=== PATIENT | female | born 1930 | race African-American/Black ===

== ENCOUNTER 2017-06-02 23:23 | Inpatient (IN) | payer MEDICARE, BC ==
[2017-06-02 23:58] LABS: #Eosinphils 0.2 thou/uL (0.0-0.7); #Monocytes 0.4 thou/uL (0.11-0.59); %Basophils 0.4 % (0.0-1.0); %Eosinophils 2.5 % (0.0-10.0); %Lymphocytes 31.1 % (21.0-51.0); %Monocytes 5.8 % (0.0-10.0); Hematocrit 46.6 % (36.0-47.0); Mean Platelet Volume 5.8 fL (7.4-10.4); Red Blood Cell (RBC) Count 5.05 mill/uL (4.20-5.40); White Blood Cell (WBC) Count 6.6 thou/uL (4.8-10.8)
[2017-06-03 00:21] LABS: ALT (SGPT) Less than 7 U/L (8-55); AST (SGOT) 14 U/L (5-34); Alkaline Phosphatase 117 U/L (40-150); Anion Gap 15 mmol/L (10-20); BUN (Urea Nitrogen) 16 mg/dL (9.8-20.1); Bilirubin, Total 1.6 mg/dL (0.2-1.2); Calc. Creatinine Clearance 0 mL/min (70-130); Calcium 9.8 mg/dL (7.8-10.44); Carbon Dioxide 25 mmol/L (23-31); Chloride 105 mmol/L (98-107); Estimated GFR-MDRD 63; Globulin 4.4 g/dL (2.4-3.5); Protein, Total 8.2 g/dL (6.0-8.3)
[2017-06-03 00:46] LABS: Lactic Acid - Sepsis 1.9 mmol/L (0.5-2.2)
[2017-06-03 02:06] LABS: Bilirubin Small (Negative); Blood, Urine Negative (Negative); Glucose, Urine (Dipstick) Negative (Negative); Ketone, Urine Trace mg/dL (Negative); Nitrite Positive (Negative); Protein, Urine (Dipstick) 30 mg/dL (Neg-Trace)
[2017-06-03 02:09] LABS: Bacteria/HPF 4+ HPF (None Seen); RBC/HPF 0-3 HPF (0-3); Squamous Epithelial 0-3 HPF (0-3)
[2017-06-03 02:22] LABS: Hyaline Casts/LPF NONE SEEN LPF (0-3 Hyaline); Yeast-All Forms None Seen HPF (None Seen)
[2017-06-03] MEDS ORDERED: Labetalol HCl 100 MG/20 ML VIAL SLOW IVP PRN (02:55)
[2017-06-03] MEDS ORDERED: Milk Of Magnesia 30 ML UDCUP PO PRN (02:55)
[2017-06-03] MEDS ORDERED: Dextrose 5% in Water 1,000 ML IV PRN (02:55)
[2017-06-03] MEDS ORDERED: Loratadine 10 MG TAB PO PRN (02:55)
[2017-06-03] MEDS ORDERED: Eucerin (Mineral Oil/Petrolatum,White) 30 gm Jar TOP PRN (02:55)
[2017-06-03] MEDS ORDERED: Sodium Chloride 0.65% Nasal 44 ML BOT EA NARE PRN (02:55)
[2017-06-03] MEDS ORDERED: Acetaminophen 325 MG TAB PO PRN (02:55)
[2017-06-03] MEDS ORDERED: Ondansetron HCl/PF 4 MG/2 ML Vial IVP PRN (02:55)
[2017-06-03] MEDS ORDERED: Dextrose 50% Abboject 50 ML SYRINGE SLOW IVP PRN (02:55)
[2017-06-03] MEDS ORDERED: Mag-Al 1200 mg/1200 mg/30 ML UDCUP PO PRN (02:55)
[2017-06-03] MEDS ORDERED: Artificial Tears 18 DROP/0.9 ML EA EYE PRN (02:55)
[2017-06-03] MEDS ORDERED: HumaLOG 300 UNITS/3 ML VIAL SC PRN ×2 (02:55)
[2017-06-03] MEDS ORDERED: Ondansetron ODT 4 MG TAB PO PRN (02:55)
[2017-06-03] MEDS ORDERED: Acetaminophen 650 MG Suppository PR PRN (02:55)
[2017-06-03] MEDS ORDERED: Loperamide HCl 2 MG CAP PO PRN (02:55)
[2017-06-03] MEDS ORDERED: Senokot 8.6 MG TAB PO PRN (02:55)
[2017-06-03] MEDS ORDERED: Diabetic Tussin 200 MG/10 ML UDCUP PO PRN (02:55)
[2017-06-03] MEDS ORDERED: Bisacodyl 10 MG SUPP PR PRN (02:55)
[2017-06-03] MEDS ORDERED: Sodium Chloride 0.9% 1,000 ML IV SCH (03:18)
[2017-06-03 05:07] LABS: Hemoglobin A1c 5.4 % (4.0-6.0)
[2017-06-03] MEDS: Levothyroxine Sodium 125 MCG TAB PO SCH (06:02)
--- NOTE | 2017-06-03 07:21 | HP ---
PRIMARY CARE PHYSICIAN: Dr. James Azevedo. REASON FOR ADMISSION: Acute cerebrovascular accident. HISTORY OF PRESENT ILLNESS: An 86-year-old female who lives at home with the caregiver. Patient does not have any son or daughter and her niece who is medical power of supervisor dry paste, who lives in [place]. This patient has a DO NOT RESUSCITATE order at home. This patient was normally talkative, but she has appeared more slow to respond and she was away from her baseline status as per caregiver and she was not acting normal. The patient appeared confused. Initially, the caregiver thought that she might had a urinary tract infection because she had that type of problem in the past. She was able to move her right upper and lower extremity and she was able to talk slowly and she was able to follow commands and that is why caregiver did not think about stroke and as this patient does not improving to baseline level and that is why caregiver was concerned about it and decided to bring her to the emergency room. In the emergency room, she had a CT of the brain, which showed right-sided CVA, this patient's caregiver reports that she had injury in 1973 and since then her left side is weak and that is why she was not able to recognize weakness. She did not have any fever or chills. She did not have any nausea, vomiting, or headache. She did not have any chest pain, palpitation, or shortness of breath. REVIEW OF SYSTEMS: The following complete review of systems was negative, unless otherwise mentioned in the HPI or below: Constitutional: Weight loss or gain, ability to conduct usual activities. Skin: Rash, itching. Eyes: Double vision, pain. ENT/Mouth: Nose bleeding, neck stiffness, pain, tenderness. Cardiovascular: Palpitations, dyspnea on exertion, orthopnea. Respiratory: Shortness of breath, wheezing, cough, hemoptysis, fever or night sweats. Gastrointestinal: Poor appetite, abdominal pain, heartburn, nausea, vomiting, constipation, or diarrhea. Genitourinary: Urgency, frequency, dysuria, nocturia. Musculoskeletal: Pain, swelling. Neurologic/Psychiatric: Anxiety, depression. Allergy/Immunologic: Skin rash, bleeding tendency. Please see my HPI for pertinent positive and negative. All other review of systems are reviewed and negative except as mentioned in the HPI. Review of system is limited and may have not been completely reliable because of altered mental status. PAST MEDICAL HISTORY: Patient has a history of injury in 1973 and since then she has left-sided weakness, chronic low back pain and muscle spasm, hypertension, hypothyroidism, diabetes type 2, dyslipidemia. PAST SURGICAL HISTORY: Reviewed and negative. PAST PSYCHIATRIC HISTORY: Anxiety, depression, and dementia. SOCIAL HISTORY: Patient lives at home with a caregiver. No history of tobacco , alcohol, or illicit drug abuse. Her only family member is the niece who lives in [place]. FAMILY HISTORY: No strong family history of premature coronary artery disease, stroke, or cancer. EMERGENCY ROOM COURSE: Patient has given aspirin 300 mg per rectally. ALLERGIES: No known drug allergies. CURRENT HOME MEDICATIONS: Aspirin 81 mg p.o. daily, amlodipine 10 mg p.o. daily , lisinopril 40 mg p.o. daily, Amaryl 4 mg p.o. daily, Lipitor 10 mg p.o. daily , Lasix 20 mg p.o. daily, Synthroid 125 mcg p.o. daily, hydrochlorothiazide 25 mg p.o. daily, Januvia 100 mg p.o. daily, metformin 1000 mg twice daily, potassium chloride 10 mEq p.o. twice daily. PHYSICAL EXAMINATION: VITAL SIGNS: On arrival, blood pressure 195/108, pulse 83, respiratory rate 20 , temperature 98.9, saturation 97% on room air, weight 88.4 kilograms. GENERAL: Patient is currently alert, arousable, no obvious acute distress. As per the patient's caregiver, her speech is baseline. HEENT: Head, normocephalic, atraumatic. Eyes, pupils round, reactive to light. Extraocular muscles intact. ENT, moist mucous membranes. No oral lesions. No pharyngeal erythema and no exudate. NECK: Supple. Range of motion is normal. No meningeal signs of irritation. LUNGS: Clear to auscultation without any rhonchi or rales. CARDIAC: S1 and S2 regular. No murmur, no gallop, no rub. ABDOMEN: Soft, bowel sounds present, nontender, nondistended. No organomegaly , no mass, no suprapubic tenderness. BACK EXAMINATION: Unremarkable, no CVA tenderness. EXTREMITIES: Upper extremities: Patient does have good strength in the right upper extremity. Patient does have decreased strength in the left upper extremity. Lower extremities: Similarly, patient does have weakness on the left lower extremity and good strength in the right lower extremity. NEUROLOGIC: The patient is currently alert and awake, follows commands. Speech normal. Patient does have left-sided weakness, which is chronic per caregiver, right-sided motor normal. No focal sensory deficit noted. Cerebellar sign unable to test at this point. SKIN: No skin rash. HEMATOLOGICAL SYSTEM: No lymphadenopathy. PSYCHIATRIC: Normal affect. SIGNIFICANT LABORATORY DATA AND DIAGNOSTICS: 1. 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 2. CT of the brain based on my review, right-sided acute cerebrovascular accident. 3. Chest x-ray, based on my review, no acute cardiopulmonary process. 4. CBC: WBC 6.6, hemoglobin 14.9, platelets 311. BMP shows sodium 141, potassium 4.0, chloride 105, carbon dioxide 25, BUN 16, creatinine 1.0, glucose 95, calcium 9.8. 5. LFT: AST 14, ALT less than 7, alkaline phosphatase 117, albumin 3.8. ASSESSMENT AND PLAN/IMPRESSION: 1. Acute cerebrovascular accident. This patient does have right-sided cerebrovascular accident with left-sided weakness. Her left-sided weakness is predominantly chronic as well. At this point, patient will require admission to the stroke floor. Neurology will be consulted. We will continue with aspirin 300 mg per rectally. When patient is able to take p.o. and cleared by speech therapy for oral intake, then we will resume aspirin 325 mg p.o. daily. We will also continue with blood pressure medicine with amlodipine, lisinopril as per home dosage and we will use p.r.n. basis hydralazine to keep blood pressure around 140 to 150. 2. Diabetes type 2. We will continue with insulin as per sliding scale protocol. We will check hemoglobin A1c. Once patient starts p.o. intake, at that time, we will resume her glimepiride, Januvia and metformin therapy. At this point, we will hold on that medication because of patient's blood sugar is running lower side. 3. Hypertension. We will continue with lisinopril 40 mg p.o. daily, amlodipine 10 mg p.o. daily, hydrochlorothiazide 25 mg p.o. daily, and p.r.n. basis hydralazine. 4. Dyslipidemia. We will check lipid profile tomorrow and continue with Lipitor 10 mg p.o. daily. 5. Chronic left-sided weakness. Patient will need PT, OT, and we will evaluate for SNU placement on discharge. 6. Deep venous thrombosis prophylaxis. Lovenox 40 mg subcu daily. 7. Gastrointestinal prophylaxis. Protonix 40 mg p.o. daily. CODE STATUS: Discussed with the patient and the patient's caregiver. Patient does have DNR status at her home and she does not want to try cardiopulmonary resuscitation in case of cardiopulmonary arrest and DNR order requested. During this admission and we will consult entire stroke team, PT, OT, and speech therapy evaluation, and as a stroke workup, we will do carotid ultrasound , echocardiography, homocysteine, lipid profile check, and RPR check. Disposition and plan, based on clinical course, we are expecting patient's stay in the hospital more than 2 midnights. Plan of care discussed with the patient' s family member at bedside. EMA
[2017-06-03] MEDS ORDERED: Aspirin 325 MG TAB PO SCH (09:00)
--- NOTE | 2017-06-03 09:31 | RAD ---
CHEST 1 VIEW: HISTORY: Altered mental status. COMPARISON: 05/02/07. FINDINGS: Cardiac silhouette is magnified by projection. Pulmonary vasculature is unremarkable. Mediastinum is midline. There is no lobar consolidation or evidence of pneumothorax. IMPRESSION: No active cardiopulmonary abnormalities are demonstrated. POS: [facility]
--- NOTE | 2017-06-03 09:53 | PDOC.EVN ---
Event Note - Event Note Event Note: Pt seen and examined.Chart reviewed in detail. tted earlier with dysarthria and weakness and found to have R MCA stroke. librarian special collections at bedside.Pt asleep. Discussed care. She reports that pt has come around and symptoms have much improved. will monitor. VSS.CTA b/l RRR. PLAN- PT/OT/LINSEED OIL REFINER/Neurology recs requested. cont CO ASA.Pt takes 81 mg ASA at home. Statin when cleared by LINSEED OIL REFINER. Stroke team to follow.Hemodynamically stable. Follow ECHO results. am labs. Nicole is the surrogate decision maker and lives in [place]
[2017-06-03] MEDS: cefTRIAXone\\ROCEPHIN 1 GM in Sodium Chloride 0.9% 100 ML IVPB SCH (10:02)
[2017-06-03] MEDS ORDERED: cefTRIAXone\\ROCEPHIN 1 GM VIAL ONE (11:37)
--- NOTE | 2017-06-03 12:48 | MRI ---
MRI BRAIN WITHOUT CONTRAST: HISTORY: An 86-year-old with a history of altered mental status. Possible stroke. FINDINGS: Multiplanar, multisequence noncontrast-enhanced MRI images of brain obtained. Noncontrast-enhanced MRI images of the brain demonstrate a large left middle cerebral artery vascula r distribution area of stroke. There are areas of diffusion restriction in the left basal ganglion including caudate head and body, putamen, and globus pallidus, right external capsule, internal caps ule, and right insular cortex, right parietal portions, and right posterior temporal lobe and portio ns of the posterior right temporal lobe. Extensive motion artifact degrades the quality of the T2, FLAIR, and gradient echo, and T1 weighted sequences. Findings were discussed with Dr. Jessica Kramer at 12:34 p.m. on 06/03/17. CODE CR POS: [facility]
--- NOTE | 2017-06-03 13:17 | CT ---
PRELIMINARY REPORT/[facility]/EMERGENCY AFTER HOURS PROCEDURE: EXAM: CT Head Without Intravenous Contrast CLINICAL HISTORY: 86 years old, female; Signs and symptoms; Altered mental status/memory loss; Confusion or disorienta tion; Patient HX: F86 presents to ed due to mental status changes. Pt's caregiver stated that patien t started acting differently today around noon. Pt's caregiver reports that pt was acting perfectly normal this morning, and around lunch she started acting confused, quiet and disorentied, which is n ot her baseline. Caregiver states that pt had an accident many years ago that altered strength and function in the left side of her body. TECHNIQUE: Axial computed tomography images of the head/brain without intravenous contrast. COMPARISON: No relevant prior studies available. FINDINGS: Brain: There is effacement of the right insular ribbon, the lateral margin of the right basal gangli a, and areas of the right temporal and parietal cortex. There is mild hyperdensity suggested in the distal branches of the right MCA. The findings are suspicious for an acute right MCA territory infarct. The ASPECTS score is as 5/10, greater than one third of the MCA territory. This is a CT contraindicatio n to thrombolytic therapy. There is a moderate burden of hypodense lesions in the bilateral frontop arietal white matter which could be acute or chronic small vessel ischemic disease change. There is no intracranial hemorrhage, mass effect, midline shift or herniation. There is moderate generalized brain parenchymal volume loss. There is a chronic appearing lacunar infarct in the left basal gangli a. There is a chronic small cortical infarct in the left parieto-occipital cortex. Ventricles: Unremarkable. No ventriculomegaly. Bones/joints: Unremarkable. No acute fracture. Soft tissues: Unremarkable. Vasculature: There are mild intracranial atherosclerotic vascular calcifications. Sinuses: Unremarkable as visualized. No acute sinusitis. Mastoid air cells: Unremarkable as visualized. No mastoid effusion. IMPRESSION: 1. There is effacement of the right insular ribbon, the lateral margin of the right basal ganglia, a nd areas of the right temporal and parietal cortex. There is mild hyperdensity suggested in the dist al branches of the right MCA. The findings are suspicious for an acute right MCA territory infarct. The ASPECTS score is as 5/10, approximately 50% of the MCA territory. This is a CT contraindication to thrombolytic therapy. 2. There is a moderate burden of hypodense lesions in the bilateral frontoparietal white matter whic h could be acute or chronic small vessel ischemic disease change. 3. There is no intracranial hemorrhage, mass effect, midline shift or herniation. This interpretation was based upon the receipt of 65 image(s). THIS REPORT CONTAINS FINDINGS THAT MAY BE CRITICAL TO PATIENT CARE. The findings were verbally commu nicated via telephone conference with KIRK Gutierrez at 12:46 AM CDT on 06/03/2017. The findings were acknowledged and understood. Thank you for allowing us to participate in the care of your patient. Dictated and Authenticated by: Alexander Mabry DO 06/03/2017 12:47 AM [place] Time ([place] \T\ Jim) FINAL REPORT CT HEAD NONCONTRAST: DATE: 06/03/17. TIME: Performed on an emergency basis at 0022 hours: HISTORY: Altered mental status. COMPARISON: 05/29/07. FINDINGS: Findings agree with the preliminary report by Dr. Mabry from [facility]. Subtle changes of the right middle cerebral hemisphere and hyperdensity associated with the distal branches of the rig ht middle cerebral artery are suggestive of acute/developing infarct. POS: [facility]
--- NOTE | 2017-06-03 13:33 | CON ---
DATE OF CONSULTATION: 06/03/2017 NEUROLOGY CONSULTATION CONSULTING PHYSICIAN: Hospitalist Service. IMPRESSION: 1. Urinary tract infection with increased weakness. 2. History of chronic left hemiparesis. PLAN: 1. Continue antibiotics. 2. Physical therapy evaluation. 3. MRI of the brain. HISTORY OF PRESENT ILLNESS: Ms. Love is an 86-year-old black female who lives at home with assist eddie. Her family reports that normally she can walk very short distances with some standby assistan ce. She usually spends most of her time sitting in her recliner or wheelchair. Ordinarily, she is able to get up and transfer with some minimal assistance. Her daughter noted that she seemed a bit more confused than normal and had more difficulty transferring. This has happened in the past when she had urinary tract infections. She came to the emergency room for evaluation. She had a CT scan of the brain done, which the hospitalist thought was consistent with a right hemispheric stroke. H er daughter reports that there is no change in the severity of weakness on the left side compared to her baseline. She was noted to have evidence of bacteria in the urine and was started on antibioti cs last night. She otherwise has not acted it in any way different than her baseline. PAST MEDICAL HISTORY: Prior brain injury with left-sided weakness. ALLERGIES: As per chart. MEDICATIONS: Were reviewed including aspirin and atorvastatin. SOCIAL HISTORY: No tobacco or alcohol use. FAMILY HISTORY: Noncontributory. REVIEW OF SYSTEMS: The patient has no other particular complaints. PHYSICAL EXAMINATION: GENERAL: Generally, she is a well-nourished elderly lady sitting up in bed in no distress. VITAL SIGNS: Blood pressure 141/70, pulse 69, respirations 18, and temperature 98.2. HEENT: Pupils are equal. Conjunctivae clear. Oropharynx clear. NECK: No lymphadenopathy noted. EXTREMITIES: No cyanosis or edema. NEUROLOGIC: She was alert, but minimally communicative. No obvious facial asymmetry, but she does not have her teeth in. Motor exam showed good strength on the right side with antigravity strength. There is left-sided weakness present in both the arm and leg. Sensation was grossly intact. No a bnormal movements were seen. LABORATORY DATA: Laboratory studies were reviewed. CT scan of the brain without contrast showed age-related atrophy and small vessel ischemic changes i n the periventricular regions bilaterally. No acute abnormalities were noted. SUMMARY: This is an 86-year-old woman who had minor change in general strength according to the jazmyne ghter with some confusion and evidence of urinary tract infection. I do not see any current evidenc e to suggest that she has suffered a new stroke. I agree with her current medication plan. MRI of the brain should determine whether there have been any acute abnormalities otherwise.
[2017-06-03] MEDS: Enoxaparin Sodium 40 MG/0.4 ML SYRINGE SC SCH (14:18)
[2017-06-03] MEDS: Aspirin 300 MG Suppository PR SCH (14:19)
[2017-06-03] MEDS: Famotidine/PF 20 mg/2ml Vial SLOW IVP SCH ×2 (14:30→20:43)
[2017-06-03] MEDS: Lisinopril 20 MG TAB PO SCH (14:31)
[2017-06-03] MEDS: Hydrochlorothiazide 25 MG TAB PO SCH (14:31)
[2017-06-03] MEDS: Dextrose 5 %-0.45 % NaCl 1,000 ML IV SCH (15:34)
[2017-06-03] MEDS: Nystatin 500,000 UNITS/5 ML UDCUP SSW SCH ×2 (18:40→20:43)
[2017-06-03] MEDS: Atorvastatin Calcium 10 MG TAB PO SCH (20:38)
[2017-06-04] MEDS: Dextrose 5 %-0.45 % NaCl 1,000 ML IV SCH ×2 (04:27→17:38)
[2017-06-04] MEDS: Levothyroxine Sodium 125 MCG TAB PO SCH (05:27)
[2017-06-04] MEDS: cefTRIAXone\\ROCEPHIN 1 GM in Sodium Chloride 0.9% 100 ML IVPB SCH (09:06)
[2017-06-04] MEDS: Aspirin 300 MG Suppository PR SCH (09:07)
[2017-06-04] MEDS: Enoxaparin Sodium 40 MG/0.4 ML SYRINGE SC SCH (09:07)
[2017-06-04] MEDS: Nystatin 500,000 UNITS/5 ML UDCUP SSW SCH ×4 (09:07→21:45)
--- NOTE | 2017-06-04 09:38 | PDOC.PN ---
- Subjective Encounter Start Date: 06/04/17 Encounter Start Time: 09:37 -: old records requested/rev Pt seen and examined, chart reviewed in its entirety. This is mty first visit with this patient. Family at bedside, MSmuch improved, basically at caseline. Pt is asking for banana pudding, over and over. follows commands Case discussed with DIRECTOR OF SPECIAL SERVICES: swallowing now appears to be at baseline, deitary recommendations made and approved. DIRECTOR OF SPECIAL SERVICES to enter. Still with aspiration risk, btu seems to be at baseline Neuro note reviewed: no hard clinical evidence of acute CVA MRI: Large left MCA distribution CVA No F/c, no N/V/d/c, speech and movement apparently improved - Objective Resuscitation Status: Resuscitation Status DNR:Do Not Resuscitate MAR Reviewed: Yes Vital Signs & Weight: Vital Signs (12 hours) Temp Pulse Resp BP Pulse Ox 06/04/17 07:35 98.4 F 64 16 146/69 H 16 L 06/04/17 04:15 98.3 F 59 L 14 159/78 H 98 06/03/17 23:46 96.7 F L 53 L 18 159/91 H 98 Weight Weight 154 lb 12.8 oz I&O: 06/03/17 06/04/17 06/05/17 06:59 06:59 06:59 Intake Total 40 975 Balance 40 975 Result Diagrams: 06/02/17 23:49 06/02/17 23:49 Additional Labs: Accuchecks 06/04/17 06/03/17 06/03/17 06:05 21:07 17:45 POC Glucose 87 84 76 06/03/17 11:02 POC Glucose 72 Radiology Reviewed by me: Yes EKG Reviewed by me: Yes Phys Exam - Physical Examination Constitutional: NAD HEENT: PERRLA, moist MMs, sclera anicteric, oral pharynx no lesions Neck: no nodes, no JVD, supple, full ROM Respiratory: no wheezing, no rales, no rhonchi, clear to auscultation bilateral Cardiovascular: RRR, no significant murmur, no rub Gastrointestinal: soft, non-tender, no distention, positive bowel sounds Musculoskeletal: no edema, pulses present Neurological: non-focal Lymphatic: no nodes Psychiatric: normal affect, A&O x 3 Skin: no rash, normal turgor, cap refill <2 seconds Dx/Plan (1) Left acute arterial ischemic stroke, MCA (middle cerebral artery) Code(s): I63.512 - CEREB INFRC D/T UNSP OCCLS OR STENOS OF LEFT MID CEREB ART Status: Acute Comment: will follow up on neuro thoughts and recs. looks by MRI to be a newer CVA. continue ASA. MS at baseline, awaiting PT/OT to eval. Rehab vs home with [facility] PT on d/C (2) Oropharyngeal dysphagia Code(s): R13.12 - DYSPHAGIA, OROPHARYNGEAL PHASE Status: Chronic Comment: at baseline, diet modified per DIRECTOR OF SPECIAL SERVICES (3) DM2 (diabetes mellitus, type 2) Status: Chronic Qualifiers: Diabetes mellitus complication status: with circulatory complication Diabetes mellitus technician terminal and repeater insulin use: unspecified technician terminal and repeater insulin use status (4) HTN (hypertension) Code(s): I10 - ESSENTIAL (PRIMARY) HYPERTENSION Status: Chronic (5) HLD (hyperlipidemia) Code(s): E78.5 - HYPERLIPIDEMIA, UNSPECIFIED Status: Chronic (6) Hypothyroidism Code(s): E03.9 - HYPOTHYROIDISM, UNSPECIFIED Status: Chronic - Plan cont current plan of care, plan discussed w/ family, PT/OT, speech therapy, DVT proph w/SCDs * .
[2017-06-04] MEDS: Hydrochlorothiazide 25 MG TAB PO SCH (12:01)
[2017-06-04] MEDS: Lisinopril 20 MG TAB PO SCH (12:01)
[2017-06-04 13:36] VITALS: BMI 25.0
[2017-06-04] MEDS ORDERED: Famotidine/PF 20 mg/2ml Vial SLOW IVP SCH (21:00)
[2017-06-04] MEDS: Atorvastatin Calcium 10 MG TAB PO SCH (21:45)
[2017-06-05] MEDS: cefTRIAXone\\ROCEPHIN 1 GM in Sodium Chloride 0.9% 100 ML IVPB SCH (06:01)
[2017-06-05] MEDS: Levothyroxine Sodium 125 MCG TAB PO SCH (06:02)
[2017-06-05] MEDS: Dextrose 5 %-0.45 % NaCl 1,000 ML IV SCH (06:04)
[2017-06-05] MEDS: Hydrochlorothiazide 25 MG TAB PO SCH (10:13)
[2017-06-05] MEDS: Lisinopril 20 MG TAB PO SCH (10:13)
[2017-06-05] MEDS: Nystatin 500,000 UNITS/5 ML UDCUP SSW SCH ×2 (10:14→14:24)
[2017-06-05] MEDS: Aspirin 325 mg Enteric Coated Tablet PO SCH ×2 (10:14→10:38)
[2017-06-05] MEDS: Enoxaparin Sodium 40 MG/0.4 ML SYRINGE SC SCH (10:15)
[2017-06-05 12:26] VITALS: TEMP 97.6
--- NOTE | 2017-06-05 14:57 | DIS ---
DATE OF ADMISSION: 06/03/2017 DATE OF DISCHARGE: 06/04/2017 DISCHARGE DIAGNOSES: 1. Acute left middle cerebral artery distribution, thrombotic cerebrovascular accident. 2. Oropharyngeal dysphagia, chronic. 3. Hyperlipidemia. 4. Diabetes mellitus type 2. 5. Hypertension. 6. Hypothyroidism. 7. Physical debility. 8. Escherichia coli urinary tract infection. 9. Pressure ulcers, present on admission SACROCOCCYGEAL R SIDE PRESSURE ULCER. STAGE II SACROCOCCYGEAL CENTER REGION PRESSURE ULCER. STAGE II SACROCOCCYGEAL LEFT SIDE PRESSURE ULCER. STAGE II CONSULTATION: Dr. Kwong from Neurology. PROCEDURES: 1. Echocardiogram on 06/03/2017 that showed diastolic dysfunction, slightly decreased ejection fraction of 30%-35%, mild mitral regurgitation. 2. Brain MRI on 06/03/2017 with left middle cerebral artery distribution acute infarct. HISTORY AND PHYSICAL: Ms. Love is a pleasant 86-year-old -[place] female with history of dementia followed by Dr. James Aezvedo as an outpatient. She presented to the emergency department for being less responsive than normal and was subsequently admitted from the ER for possible stroke. HOSPITAL COURSE: The patient was seen and examined by Dr. Marcano and admitted. She was started on aspirin per rectum, MRI was ordered and Neurology was consulted. The patient was seen by Dr. Kwong the morning of 06/03/2017, and without any further objective findings was not convinced of acute arterial stroke. She subsequently had an MRI done that did show left middle cerebral artery distribution ischemic changes and upon representation confirmed this. Mental status beal, she improved through the course of 06/03/2017-06/04/2017. By 06/04, she was able to eat. She was seen by PT, OT and ST. Speech therapy recommended dysphagia diet, but also mentioned that she was in aspiration risk. I discussed with the family, and they wish to go ahead and feed her acknowledging the risks. She worked with PT and OT. After discussion with the family and going back and forth regarding home health care versus nursing home facility placement, today 06/05/2017, they decided on home with home physical therapy. The patient was cleared by Neurology and stable for discharge with home physical therapy on increased aspirin from 81 up to 325 mg daily. PHYSICAL EXAMINATION: The patient was seen and examined on the day of discharge. Discharge plan and disposition were discussed with the patient and her family face to face at the bedside. DISCHARGE MEDICATIONS: 1. Aspirin 325 mg a day. 2. Amlodipine 10 mg a day. 3. Ampicillin 250 mg p.o. q.i.d. for 5 days. 3. Atorvastatin 10 mg daily. 4. Lasix 20 mg daily. 5. Glimepiride 4 mg daily. 6. Hydrochlorothiazide 25 mg daily. 7. Levothyroxine 125 mcg daily. 8. Lisinopril 40 mg daily. 9. Klor-Con 20 mEq p.o. b.i.d. 10. Metformin 1000 mg p.o. b.i.d. 11. Januvia 100 mg p.o. daily. DISCHARGE DISPOSITION: The patient has been discharged to home with home health care under [facility] for physical therapy, occupational therapy, and speech therapy. DISCHARGE CONDITION: Stable. FOLLOWUP APPOINTMENTS: 1. With primary care physician in a week. 2. Neurology per their clinic recommendation. EMA
[2017-06-05 15:18] VITALS: BP 121/64
--- NOTE | 2017-06-05 15:19 | PQF ---
CLINICAL DOCUMENTATION IMPROVEMENT CLARIFICATION FORM: ICD-10 Updated PLEASE DO AN ADDENDUM TO THE PROGRESS NOTE WITH ANY DOCUMENTATION UPDATES OR ADDITIONS AND CARRY THROUGH TO DC SUMMARY. THANK YOU. DATE: 06/05/17 ATTN: Dr. Cricket Mireles Please exercise your independent, professional judgment in responding to the clarification form. Clinical indicators are provided on the bottom of this form for your review Please check appropriate box(s): I (concur) with the Nursing Assessment findings as stated below. [ ] Pressure Ulcer: (Stage I: Erythema; Stage II: Partial thickness; Stage III : Full thickness; Stage IV: Necrosis to muscle/bone) [ ] Location: Stage (I to IV): (Left Right Bilateral N /A ) [ ] Location: Stage (I to IV): (Left Right Bilateral N /A ) [ ] Location: Stage (I to IV): (Left Right Bilateral N/ A ) [ ] No pressure ulcer diagnosis [ ] Deep tissue injury [ ] Other diagnosis [ ] Unable to determine In addition, please specify: Present on Admission (POA): [ ] Yes [ ] No [ ] Unable to determine For continuity of documentation, please document condition throughout progress notes and discharge summary. Thank You. CLINICAL INDICATORS - SIGNS / SYMPTOMS / LABS Pre-ulcer skin changes limited to persistent focal edema (Stage 1) Abrasion, blister, partial thickness skin loss involving epidermis and/or dermis (Stage 2) Full thickness skin loss involving damage or necrosis of SQ tissue. (Stage 3) Necrosis of soft tissue through to underlying muscle, tendon, or bone. (Stage 4) Purple or maroon discolored skin or blood filled blister NURSING ASSESS.:06/03 @ 0230 SACROCOCCYGEAL R SIDE PRESSURE ULCER. STAGE II SACROCOCCYGEAL CENTER REGION PRESSURE ULCER. STAGE II SACROCOCCYGEAL LEFT SIDE PRESSURE ULCER. STAGE II RISKS: H&P: HX OF INJURY IN 1973, & SINCE THEN SHE HAS L SIDED WEAKNESS, CHRONIC LOW BACK PAIN & MUSCLE SPASM, HTN, DM 2. TREATMENT: SKIN INTERVENTIONS PER NSG PROTOCOL: POSITION CHANGES: Q2HR IN BED, Q1 HR IN CHAIR SKIN KEPT FROM EXCESSIVE MOISTURE (This form is maintained as a part of the permanent medical record) 2014 [employer]. All Rights Reserved Saray Block RN, BSN [email or web address] Office: [phone] will address in d/C summary MTDD
== END 2017-06-05 16:37 | disposition home health service (06) | DRG 65 ==
LOC: ERS 23:23 → 2SE 06-03 01:00
PROVIDERS: ADMIT Internal Medicine; ATTEND Internal Medicine
DX: I63.312 Cerebral infarction due to thrombosis of left middle cerebral artery (principal); G81.94 Hemiplegia, unspecified affecting left nondominant side; L89.152 Pressure ulcer of sacral region, stage 2; N39.0 Urinary tract infection, site not specified; R13.12 Dysphagia, oropharyngeal phase; E11.9 Type 2 diabetes mellitus without complications; I10 Essential (primary) hypertension; B96.20 Unspecified Escherichia coli [E. coli] as the cause of diseases classified elsewhere; E78.5 Hyperlipidemia, unspecified; Z66 Do not resuscitate; Z79.84 Long term (current) use of oral hypoglycemic drugs; Z79.82 Long term (current) use of aspirin; E03.9 Hypothyroidism, unspecified
CPT/HCPCS: 36415; 36416; 51701; 70450; 70551; 71010; 80053; 80061; 81003; 81015; 83036; 83090; 83605; 84443; 85025; 86780; 87040; 87077; 87086; 87186; 93005; 93306; A4216; G8978-GP-CM; G8979-GP-CK; G8987-GO-CL; G8988-GO-CJ; G8996-GN-CL; G8996-GN-CM; G8997-GN-CK; J0696; J1650; J7050; S0028

== ENCOUNTER 2017-07-25 10:29 | Inpatient (IN) | payer MEDICARE, BC ==
[2017-07-25 11:09] LABS: #Basophils 0.1 thou/uL (0.0-0.2); #Eosinphils 0.3 thou/uL (0.0-0.7); #Lymphocytes 3.1 thou/uL (1.20-3.40); #Monocytes 0.7 thou/uL (0.11-0.59); #Neutrophils 5.2 thou/uL (1.40-6.50); %Basophils 0.7 % (0.0-1.0); %Eosinophils 3.3 % (0.0-10.0); %Lymphocytes 33.3 % (21.0-51.0); %Monocytes 7.1 % (0.0-10.0); Hematocrit 44.6 % (36.0-47.0); Mean Platelet Volume 6.2 fL (7.4-10.4); Red Blood Cell (RBC) Count 4.75 mill/uL (4.20-5.40); White Blood Cell (WBC) Count 9.4 thou/uL (4.8-10.8)
--- NOTE | 2017-07-25 11:24 | RAD ---
CHEST ONE VIEW: Comparison: 06-12-17 History: Weakness. FINDINGS: Elongation of the aorta. Normal cardiac silhouette. The pulmonary vessels and hilum are normal. Costo phrenic angles are clear. No masses or consolidation. No pneumothorax or osseous abnormalities. IMPRESSION: No acute cardiopulmonary process. POS: CHON
[2017-07-25 11:26] LABS: Lactic Acid - Sepsis 1.8 mmol/L (0.5-2.2)
[2017-07-25 11:31] LABS: ALT (SGPT) 12 U/L (8-55); AST (SGOT) 24 U/L (5-34); Alkaline Phosphatase 137 U/L (40-150); Anion Gap 16 mmol/L (10-20); BUN (Urea Nitrogen) 55 mg/dL (9.8-20.1); Bilirubin, Total 1.2 mg/dL (0.2-1.2); CK (CPK) 245 U/L (29-168); Calc. Creatinine Clearance 0 mL/min (70-130); Calcium 10.6 mg/dL (7.8-10.44); Carbon Dioxide 30 mmol/L (23-31); Chloride 106 mmol/L (98-107); Estimated GFR-MDRD 30; Globulin 4.6 g/dL (2.4-3.5); Protein, Total 8.5 g/dL (6.0-8.3)
[2017-07-25 11:46] LABS: Troponin I 0.557 ng/mL (< 0.028)
[2017-07-25] MEDS ORDERED: Aspirin 325 MG TAB ONE (12:09)
[2017-07-25 12:52] LABS: Bilirubin Moderate (Negative); Blood, Urine Moderate (Negative); Glucose, Urine (Dipstick) Negative (Negative); Ketone, Urine Trace mg/dL (Negative); Nitrite Negative (Negative); Protein, Urine (Dipstick) 30 mg/dL (Neg-Trace)
[2017-07-25 12:54] LABS: Bacteria/HPF None Seen HPF (None Seen); Squamous Epithelial 21-50 HPF (0-3)
[2017-07-25 13:12] LABS: Yeast-All Forms None Seen HPF (None Seen)
[2017-07-25 13:14] LABS: Renal Epithelial None Seen HPF (0-3); Transitional Epithelial 0-3 HPF (0-3)
--- NOTE | 2017-07-25 15:03 | HP ---
DATE OF ADMISSION: 07/25/2017 PRIMARY CARE PHYSICIAN: Rosalie oYrkO. CHIEF COMPLAINT: Decreased appetite, not feeling well. HISTORY OF PRESENT ILLNESS: Ms. Love is an 86-year-old -[place] female with past medical h istory of CVA as well as hypertension, hypothyroidism, diabetes, and dyslipidemia who was brought in by her care provider for the above-mentioned complaints. History is mainly obtained by the care prov ider as the patient has advanced dementia and is not able to provide any history. Electronic medical records have been reviewed. The patient was last admitted to our facility in 05/2017 at which time she was diagnosed with acute cerebrovascular accident of left middle cerebral artery. She was discha rged home with physical therapy at that point of time. According to the care provider, she has been feeling well up until now. For the last 2 days, the car e provider noticed decreased appetite. She has been barely eating or drinking anything. Other than that, she has not noticed any changes in her mentation other than increased somnolence. She has not noticed any nausea, vomiting, or loose stools. She has not noticed any changes in her urination. No foul smell or different color to her urine. The patient has not been feeling short of breath accord ing to the care provider. She has not been complaining of any discomfort or any chest pain. Chelo yanez called the primary care physician's office and was told to come to the emergency room for conc erns of possible sepsis. Upon presentation to the emergency room, the patient was found to be tachycardic with heart rate in t he 120s and low blood pressure with 101/72 reading upon presentation. She had a temperature of 98.3 rectally as well upon presentation. Further evaluation revealed evidence of acute renal insufficienc y and elevated cardiac enzymes. Her troponin is elevated to 0.557 with normal CK-MB. Her creatinine kinase is also elevated at 245. Her lactic acid is within normal limits. Her urine has been done a fter straight cath and looks contaminated. Her chest x-ray is negative for any acute intrathoracic p rocesses. She is now being admitted for further evaluation of nat-CQ-qkmovegaw myocardial infarction . She has received aspirin in the emergency room. PAST MEDICAL HISTORY: 1. Recent acute cerebrovascular accident involving the left middle cerebral artery, 05/2017. 2. Hypothyroidism. 3. Chronic back pain, muscle spasm. 4. Severe advanced dementia. 5. Hypertension. 6. Diabetes. 7. Dyslipidemia. PAST SURGICAL HISTORY: Reviewed and none. PSYCHIATRIC HISTORY: Anxiety and dementia. SOCIAL HISTORY: She lives at home with the care provider. No history of drug, tobacco or alcohol ab use. Her niece is the care provider who lives in [place]. FAMILY HISTORY: No strong family history of premature coronary artery disease, stroke or cancer. ALLERGIES: No known medication allergies. CURRENT MEDICATIONS LIST: It is not available to me for review at this time. She was discharged on following medications in 05/2017, just about 5 weeks ago. She is supposed to be on aspirin 325 mg a day, amlodipine 10 mg a day, atorvastatin 10 mg a day, Lasix 20 mg daily, glimepiride 4 mg daily, hy drochlorothiazide 25 mg daily, levothyroxine 125 mcg daily, lisinopril 40 mg daily, Klor-Con 20 mg p. o. b.i.d., metformin 1000 mg p.o. b.i.d. and Januvia 100 mg daily. REVIEW OF SYSTEMS: It is very limited. The patient is awake, alert, oriented x3, but she is groanin g nonstop. At this time, denies any chest pain, shortness of breath, abdominal pain, nausea, vomitin g, diarrhea. She denies any headache, vision changes. She denies any dysuria, frequency, urgency. Once again, the review of systems is limited, because of the dementia. LABORATORY EXAMINATION: Her CBC done in the ER today is unremarkable. Serum chemistry shows sodium of 147, BUN 55, creatinine 1.93. Lactic acid is normal at 1.8. Calcium is elevated at 10.6, creatin ine kinase 245. CK-MB normal at 2.3. Troponin 0.557. X-RAY FINDINGS: Chest x-ray by my review has no evidence of any pulmonary effusions, edema or infilt rates. PHYSICAL EXAMINATION: VITAL SIGNS: Upon presentation include blood pressure 101/72, pulse of 125, saturating 100% on room air, respirations 16, temperature 98.3. GENERAL: No acute distress, awake, alert, oriented x3. She is groaning really loud, but she stopped groaning when redirected and engaged in conversation. HEENT: Mucous membrane is severely dry. No oropharyngeal exudate or erythema. Head is normocephali c, atraumatic. Pupils equal, reactive to light and accommodation. NECK: Supple without any lymphadenopathy, JVD or bruit. CHEST: Clear to auscultation without any wheezing, rales or rhonchi, though it is difficult to auscu ltate because of body position. CARDIOVASCULAR: Rhythm is regular without any murmur, rubs or gallops. She appears to be tachycardi c with frequent extra beats. ABDOMEN: Soft, nontender, nondistended with positive bowel sounds. EXTREMITIES: Free of any cyanosis, clubbing, or edema. NEUROLOGIC: Limited, but the patient is moving all four extremities. No facial droop noticed. No g ross motor deficits noticed. SKIN: Free of any rashes or bruises. Feels warm and dry to touch. PSYCHIATRIC: Normal affect, appears oriented to person, place, and time. IMPRESSION AND PLAN: 1. Non-ST elevation myocardial infarction. This is likely in the setting of extreme dehydration due to poor p.o. intake and demand ischemia. At this time, we will continue to trend serial troponins a nd restart her home medications of aspirin as well as statins. She had an echocardiogram done on 03/2017 which did not show any cardiomyopathy or valvular abnormality. We will request consultation with Cardiology for further recommendations. It does not seem like the patient has been risk stratif ied and near paused. Given the advanced dementia, she might not be the ideal candidate for same. In any case, we will continue with medical management and resuscitate this patient with IV fluids. 2. Hypotension, likely hypovolemic shock. At this time, continue with generous IV fluid and monitor her hemodynamics closely. Strict I's and O's will be monitored. At this time, we will hold her ant ihypertensive medications and volume resuscitate her. 3. Acute kidney insufficiency. This is once again secondary to poor p.o. intake. Her baseline crea tinine last month was 1.0. Her GFR since then has dropped more than half. We will hold all nephroto xic medications including the KAYLA inhibitors and metformin for now and continue IV fluid hydration. 4. Recent cerebrovascular accident. As stated above, we will continue with aspirin and statin. We will reconsult OT, PT and speech therapist for safe swallow. We will start her on diet with aspirati on risk as per the last discharge summary. 5. Diabetes mellitus type 2. At this time, we will start her on insulin sliding scale for better co ntrol as the patient's oral intake is marginal. We will hold all oral hypoglycemic medications to pr event hypoglycemia. 6. History of hypertension. At this time, due to low blood pressure, we are holding all her blood p ressure medications. They will be started once her blood pressure and renal function allows. 7. Dyslipidemia. Continue with statin. CODE STATUS: DO NOT RESUSCITATE. This was discussed with the care provider who reports that she has a written request. The care provider is requested to bring the paperwork to the hospital. DISPOSITION: The patient is being admitted to the hospital for non-ST elevation PR, likely demand is chemia secondary to extreme dehydration. Further management will depend upon her clinical course. E stimated length of stay is 2-3 midnights.
[2017-07-25 15:49] LABS: Critical Call Chem Troponin I RESULT DECREASING; Troponin I 0.516 ng/mL (< 0.028)
[2017-07-25] MEDS ORDERED: HumaLOG 300 UNITS/3 ML VIAL SC PRN ×2 (15:59)
[2017-07-25] MEDS ORDERED: Acetaminophen 325 MG TAB PO PRN (15:59)
[2017-07-25] MEDS ORDERED: Ondansetron HCl/PF 4 MG/2 ML Vial IVP PRN (15:59)
[2017-07-25] MEDS ORDERED: hydrALAZINE 20 MG/ML VIAL SLOW IVP PRN (15:59)
[2017-07-25] MEDS ORDERED: Diabetic Tussin 200 MG/10 ML UDCUP PO PRN (15:59)
[2017-07-25] MEDS ORDERED: Bisacodyl 5 MG TAB PO PRN ×2 (15:59)
[2017-07-25] MEDS ORDERED: Benzonatate 100 MG CAP PO PRN (15:59)
[2017-07-25] MEDS ORDERED: Calcium Carbonate 500 MG ChewTAB PO PRN (15:59)
[2017-07-25] MEDS ORDERED: Loratadine 10 MG TAB PO PRN (15:59)
[2017-07-25] MEDS ORDERED: Senokot 8.6 MG TAB PO PRN ×2 (15:59)
[2017-07-25] MEDS ORDERED: Milk Of Magnesia 30 ML UDCUP PO PRN (15:59)
[2017-07-25] MEDS ORDERED: Nitroglycerin 0.4 MG TAB (25 Tab Bottle) SL PRN (15:59)
[2017-07-25] MEDS ORDERED: Mag-Al 1200 mg/1200 mg/30 ML UDCUP PO PRN (15:59)
[2017-07-25] MEDS ORDERED: Dextrose 5% in Water 1,000 ML IV PRN (15:59)
[2017-07-25] MEDS ORDERED: cloNIDine 0.1 MG TAB PO PRN (15:59)
[2017-07-25] MEDS: Heparin 5,000 UNITS/ML VIAL SC SCH (20:11)
[2017-07-25] MEDS: Famotidine/PF 20 mg/2ml Vial SLOW IVP SCH (20:11)
[2017-07-25] MEDS: Sodium Chloride 0.9% 1,000 ML IV SCH (20:12)
[2017-07-25] MEDS ORDERED: Atorvastatin Calcium 10 MG TAB PO SCH (21:00)
--- NOTE | 2017-07-25 23:10 | CON ---
DATE OF CONSULTATION: 07/25/2017 PRIMARY CARE PHYSICIAN: James Azevedo D.O. PRIMARY SEED PELLETER: Deepa Brewer M.D. REFERRING PHYSICIAN: Dr. Kramer. REASON FOR CARDIOLOGY CONSULTATION: Non-ST segment elevation myocardial infarction. HISTORY OF PRESENT ILLNESS: Ms. Love is 86 years old -[place] Citizen female with a significant history of CVA, hypertension, hypothyroidism, type 2 diabetes , who was brought to [facility] for fatigue, dehydration and possible sepsis. History was taken from the patient's caregiver who stays with the patient for 24 hours 7 days. According to the patient's caregiver, she was doing well until Sunday on 07/21/2017. She was active, although she has a history of CVA. She was talking, eating well, set up to the chair; however, from Sunday, her appetite decreased. She only had a couple of bites each meal and could not able to finish her Glucerna, which she usually likes to drink at every meal. Her systolic blood pressure has been in the 80s, 90s at home, which is her normal blood pressure range, so the patient's caregiver was waiting for home health nurse to present to the patient's home on Sunday. She also did not urinate well on Sunday or Sunday. Usually, she void 4 to 5 times a day; however, she urinates only 2 times on Sunday and 3 times on Sunday with very small amount of urine. Home health nurse assessed the patient on Sunday07/24/2017. The caregiver received the phone call from the patient's primary care doctor on Sunday on 07/25/2017 and was told to take the patient to the [facility] for possible sepsis and for further evaluation and treatment. According to the caregiver, she complains of dizziness on Sunday. She denied shortness of breath, chest pain or tightness in her chest, nauseate, vomiting or diaphoresis or any other cardiac complaint. She was talking in this morning. She answered the question and responds to caregiver. However, she was up all day last night, so during the Cardiology consult assessment she was sleeping deeply. She is not able to answer any questions at this moment. When she was presented to the ER, she was found to have urinary tract infection and patient's troponin level was elevated to 0.557 and 0.516. The patient was hospitalized in 05/2017 for CVA with right-sided weakness. The patient's echocardiogram in 05/2017 shows ejection fraction of 50% to 55%, trace mitral valve regurgitation and mild tricuspid regurgitation. PAST MEDICAL HISTORY: 1. Cerebrovascular accident with right-sided weakness in 05/2017. 2. Hypertension. 3. Hypothyroidism. 4. Chronic back pain. 5. Mild advanced dementia according to caregiver. 6. Type 2 diabetes. 7. Dyslipidemia. 8. Bilateral cataract, she has not had any surgery at this moment. PAST SURGICAL HISTORY: None. PSYCHIATRIC HISTORY: She has a history of anxiety and dementia. FAMILY HISTORY: Significant history of diabetes and hypertension in her sisters. SOCIAL HISTORY: She lives at home with her caregiver. She does not have any history of tobacco, alcohol or illicit drug abuse. ALLERGIES: She has no known drug allergy. HOME MEDICATIONS: She takes aspirin 81 mg once a day, amlodipine 10 mg once a day, glimepiride 4 mg once a day, atorvastatin 10 mg once a day, furosemide 20 mg once a day, levothyroxine 125 mcg once a day, hydrochlorothiazide 25 mg once a day, Januvia 100 mg once a day, metformin 1000 mg twice a day, potassium supplement 10 mEq twice a day. REVIEW OF SYSTEMS: Noncontributory due to very drowsiness; however, according to caregiver, patient did not complain of chest pain, shortness breath, nausea, vomiting or diarrhea or constipation, headache, blurry vision, eating habit change. However, she has complained of pain in her vagina and ulcer at the sacrum area, which is managed by her home health. PHYSICAL EXAMINATION: VITAL SIGNS: Her blood pressure is 104/79, pulse 117, respiratory rate 22, temperature 98.9, O2 saturation 100% with room air. GENERAL: Well-developed, well-nourished without any acute distress. The patient is very drowsy due to possible lack of sleep last night. HEENT: Head: Normocephalic, atraumatic. Facial drooping on her right side. Eyes: Unable to assess at this moment. ENT: Oral and nasal mucosae are moist without lesion. NECK: No JVD. Neck is supple. Normal range of motion. LUNGS: Clear to auscultation bilaterally, but diminished at the bases, but no wheezing, rales or rhonchi noted. CARDIOVASCULAR: Regular rate and rhythm. Normal S1, S2. There are no S3, S4. No significant murmur, hives, thrill bruit or rub noted. EXTREMITIES: There are 2+ pulses in the dorsal pedis, posterior tibial, and popliteal. Carotid pulses are present without bruit or thrill. No edema in the bilateral lower extremities. ABDOMEN: Soft, nontender, mass to palpate, nondistended. Bowel sounds are present. MUSCULOSKELETAL: Unable to assess at this moment. SKIN: Warm and dry. No skin rash or lesion or bruise noted. NEUROLOGIC: The patient is very drowsy, unable to follow commands. PSYCHIATRIC: Unable to assess at this moment. EKG: A 12-lead EKG in the ER showed sinus tachycardia with frequent PVCs and PACs with T-wave inversion in the V1, V4, V5 and V6. The patient's chest x-ray shows no acute cardiopulmonary process. LABORATORY DATA: WBC is 9.4, hemoglobin 14.2, hematocrit 44.6, platelet of 360. Sodium 147, potassium 4.6, BUN 55, creatinine 1.93, AST 24, ALT 12, CK-MB 2.3, troponin 0.557 and 0.516. Urinalysis positive for infection. ASSESSMENT AND PLAN: 1. Indeterminate Troponin level. Elevated troponin level is possible due to dehydration and demand ischemia. The patient's troponin will be to check by the primary care doctor. The patient is going to receive normal saline 100 mL per an hour for dehydration. Patient's echocardiogram in 05/2017 showed a good ejection fraction, so the patient will tolerate fluids and normal saline IV fluids treatment. The patient's 12 lead EKG shows T-wave inversion in several leads; however, due to her advanced dementia, patient may not be a good candidate for further cardiac studies. 2. Tachycardia. The patient's heart rates have been in the 100-110s, possible due to sepsis or secondary to severe dehydration. Hopefully, the patient's heart rate is coming down with normal saline IV fluids treatment. We would like to continue to monitor on the telemetry and we like to adjust medication as appropriate 3. Hypotension, secondary to dehydration. Again, patient is going to have continuous normal saline IV fluid. Hopefully, the patient's blood pressure becomes stabilized with normal saline. 4. Acute kidney insufficiency secondary to dehydration. Again, once patient started receiving normal saline IV fluid treatment, patient's kidney function improves. We like to continue to monitor. The patient's KAYLA inhibitor and ____ _ is on hold by the primary care doctor due to the patient's kidney function. 5. Diabetes type 2. According to the caregiver, patient's blood sugar was extremely low like 30s and 40s at home after she had a cerebrovascular accident. D5 normal saline might be beneficial for this patient to avoid hypoglycemia. 6. History of cerebrovascular accident with right-sided weakness. She is on aspirin 325 mg one daily. We like to restart patient's statin medication. 7. Hyperlipidemia. We like to start some statin medication for this patient, atorvastatin 10 mg once a day. 8. History of hypertension. Her blood pressure tends to be low at this moment. We would like to continue to monitor her blood pressure and we like to adjust patient medication as appropriate. 9. Hypothyroidism. The patient's levothyroxine 125 mcg once a day will be started. Thank you very much for allowing the Cardiology service to participate in the care of this patient. We will follow along with the patient care team and make further recommendations as appropriate. EMA
[2017-07-26] MEDS: Sodium Chloride 0.9% 1,000 ML IV SCH (02:12)
[2017-07-26 04:56] LABS: #Basophils 0.1 thou/uL (0.0-0.2); #Eosinphils 0.3 thou/uL (0.0-0.7); #Lymphocytes 2.6 thou/uL (1.20-3.40); #Monocytes 0.6 thou/uL (0.11-0.59); #Neutrophils 4.3 thou/uL (1.40-6.50); %Eosinophils 3.2 % (0.0-10.0); %Lymphocytes 32.8 % (21.0-51.0); %Monocytes 7.7 % (0.0-10.0); Hematocrit 35.7 % (36.0-47.0); Red Blood Cell (RBC) Count 3.78 mill/uL (4.20-5.40); White Blood Cell (WBC) Count 7.8 thou/uL (4.8-10.8)
[2017-07-26 05:07] LABS: Anion Gap 9 mmol/L (10-20); BUN (Urea Nitrogen) 41 mg/dL (9.8-20.1); Calc. Creatinine Clearance 41 mL/min (70-130); Calcium 9.3 mg/dL (7.8-10.44); Carbon Dioxide 29 mmol/L (23-31); Chloride 114 mmol/L (98-107); Estimated GFR-MDRD 59
[2017-07-26] MEDS: Levothyroxine Sodium 125 MCG TAB PO SCH (05:20)
[2017-07-26 06:06] LABS: Bilirubin Negative (Negative); Blood, Urine Trace (Negative); Glucose, Urine (Dipstick) Negative (Negative); Ketone, Urine Negative (Negative); Nitrite Negative (Negative); Protein, Urine (Dipstick) Negative (Neg-Trace)
[2017-07-26 06:09] LABS: Bacteria/HPF None Seen HPF (None Seen); Hyaline Casts/LPF 4-6 HYALINE CAST LPF (0-3 Hyaline); Squamous Epithelial 0-3 HPF (0-3)
[2017-07-26] MEDS: Aspirin 325 mg Enteric Coated Tablet PO SCH (08:56)
[2017-07-26] MEDS: Atorvastatin Calcium 10 MG TAB PO SCH (08:59)
[2017-07-26] MEDS: Heparin 5,000 UNITS/ML VIAL SC SCH ×2 (08:59→21:15)
--- NOTE | 2017-07-26 09:36 | PDOC.PN ---
- Subjective Encounter Start Date: 07/26/17 Encounter Start Time: 07:50 -: old records requested/rev Patient seen and examined. No overnight events, pt is mumbling, rn patient care bedside - Objective Resuscitation Status: Resuscitation Status DNR:Do Not Resuscitate MAR Reviewed: Yes Vital Signs & Weight: Vital Signs (12 hours) Temp Pulse Resp BP Pulse Ox 07/26/17 09:09 97.8 F 88 17 112/71 96 07/26/17 07:57 98.6 F 85 16 96 07/26/17 04:00 98.6 F 85 16 115/58 L 98 Weight Weight 141 lb 4.8 oz I&O: 07/25/17 07/26/17 07/27/17 06:59 06:59 06:59 Intake Total 1562 240 Output Total 750 Balance 812 240 Result Diagrams: 07/26/17 04:17 07/26/17 04:17 Additional Labs: Accuchecks 07/26/17 07/25/17 07/25/17 05:53 19:59 17:05 POC Glucose 64 L 81 75 EKG Reviewed by me: Yes Phys Exam - Physical Examination Constitutional: NAD HEENT: PERRLA, moist MMs, sclera anicteric Neck: no JVD, supple Respiratory: no wheezing, no rales, no rhonchi Cardiovascular: RRR, no significant murmur, no rub Gastrointestinal: soft, non-tender, no distention, positive bowel sounds Musculoskeletal: no edema, pulses present Neurological: non-focal, normal sensation, moves all 4 limbs Lymphatic: no nodes Psychiatric: normal affect, A&O x 3 Skin: no rash, normal turgor Dx/Plan (1) Acute kidney failure Status: Acute (2) NSTEMI (non-ST elevated myocardial infarction) Code(s): I21.4 - NON-ST ELEVATION (NSTEMI) MYOCARDIAL INFARCTION Status: Acute (3) UTI (urinary tract infection) Status: Acute (4) DM2 (diabetes mellitus, type 2) Status: Chronic (5) H/O: CVA (cerebrovascular accident) Code(s): Z86.73 - PRSNL HX OF TIA (TIA), AND CEREB INFRC W/O RESID DEFICITS Status: Chronic (6) HLD (hyperlipidemia) Code(s): E78.5 - HYPERLIPIDEMIA, UNSPECIFIED Status: Chronic (7) HTN (hypertension) Code(s): I10 - ESSENTIAL (PRIMARY) HYPERTENSION Status: Chronic (8) Hypothyroidism Code(s): E03.9 - HYPOTHYROIDISM, UNSPECIFIED Status: Chronic (9) Oropharyngeal dysphagia Code(s): R13.12 - DYSPHAGIA, OROPHARYNGEAL PHASE Status: Chronic (10) Hypoglycemia due to type 2 diabetes mellitus Code(s): E11.649 - TYPE 2 DIABETES MELLITUS WITH HYPOGLYCEMIA WITHOUT COMA Status: Acute - Plan cont current plan of care, PT/OT * . Review of Systems - Review of Systems Other: unable to review as pt is non verbal - Medications/Allergies Allergies/Adverse Reactions: Allergies Allergy/AdvReac Type Severity Reaction Status Date / Time No Known Allergies Allergy Verified 06/03/17 04:29 Medications: Current Medications Acetaminophen (Tylenol) 650 mg PO Q4H PRN PRN Reason: Headache/Fever or Pain Al Hydroxide/Mg Hydroxide (Maalox) 30 ml PO Q6H PRN PRN Reason: Heartburn or Indigestion Aspirin (Ecotrin) 325 mg PO DAILY [facility] Last Admin: 07/26/17 08:56 Dose: 325 mg Atorvastatin Calcium (Lipitor) 10 mg PO DAILY [facility] Last Admin: 07/26/17 08:59 Dose: 10 mg Benzonatate (Tessalon) 100 mg PO Q4H PRN PRN Reason: Cough Bisacodyl (Dulcolax) 10 mg PO DAILYPRN PRN PRN Reason: Constipation Clonidine (Catapres) 0.1 mg PO Q4H PRN PRN Reason: Systolic BP > 180 Dextrose/Water (Dextrose 50%) 25 gm SLOW IVP PRN PRN PRN Reason: Hypoglycemia Famotidine (Pepcid) 20 mg SLOW IVP Q24HR [facility] Last Admin: 07/25/17 20:11 Dose: 20 mg Glucagon (Glucagon) 1 mg IM PRN PRN PRN Reason: Hypoglycemia Guaifenesin (Robitussin Sf) 200 mg PO Q4H PRN PRN Reason: Cough Heparin Sodium (Porcine) (Heparin) 5,000 units SC BID [facility] Last Admin: 07/26/17 08:59 Dose: 5,000 units Hydralazine HCl (Apresoline) 10 mg SLOW IVP Q4H PRN PRN Reason: Systolic BP > 180 Sodium Chloride (Normal Saline 0.9%) 1,000 mls @ 100 mls/hr IV .Q10H [facility] Last Admin: 07/26/17 02:12 Dose: 1,000 mls Dextrose/Water (D5w) 1,000 mls @ 0 mls/hr IV .Q0M PRN; As Directed PRN Reason: Hypoglycemia Insulin Human Lispro (Humalog) 0 units SC .MODERATE SLIDING SC PRN PRN Reason: Moderate Correctional Scale Insulin Human Lispro (Humalog) 0 units SC .BEDTIME SLIDING SC PRN PRN Reason: Bedtime Correctional Scale Levothyroxine Sodium (Synthroid) 125 mcg PO 0600 [facility] Last Admin: 07/26/17 05:20 Dose: 125 mcg Loratadine (Claritin) 10 mg PO DAILYPRN PRN PRN Reason: Sinus Symptoms Magnesium Hydroxide (Milk Of Magnesium) 30 ml PO DAILYPRN PRN PRN Reason: Constipation Nitroglycerin (Nitrostat) 0.4 mg SL Q5MIN PRN PRN Reason: Chest Pain Ondansetron HCl (Zofran) 4 mg IVP Q6H PRN PRN Reason: Nausea/Vomiting Senna (Senokot) 2 tab PO HSPRN PRN PRN Reason: Constipation Sodium Chloride (Flush - Normal Saline) 10 ml IVF Q12HR [facility] Last Admin: 07/26/17 08:57 Dose: Not Given Sodium Chloride (Flush - Normal Saline) 10 ml IVF PRN PRN PRN Reason: Saline Flush Tramadol HCl (Ultram) 50 mg PO Q4H PRN PRN Reason: Moderate Pain (4-6)
[2017-07-26] MEDS: Dextrose 5 % And 0.9 % NaCl 1,000 ML IV SCH (10:52)
[2017-07-26] MEDS ORDERED: cefTRIAXone\\ROCEPHIN 1 GM in Sodium Chloride 0.9% 100 ML IVPB SCH (11:45)
[2017-07-26] MEDS: cefTRIAXone\\ROCEPHIN 1 GM, Syringe 0.4 ML in Sterile Water 9.6 ML SLOW IVP SCH (11:48)
[2017-07-26] MEDS: Vancomycin HCl 750 MG in Sodium Chloride 0.9% 250 ML 250 ML IVPB SCH (13:39)
--- NOTE | 2017-07-26 16:21 | PDOC.CTH ---
<Denise Ramey - Last Filed: 07/26/17 16:20> Cardiology Progress Note - Subjective The pt seen and examined. No overnight events. No cardiac complaints. She opened her eyes and followed commands. - Objective Vital Signs Temp Pulse Pulse Pulse Resp BP BP 07/26/17 15:17 98 112/60 07/26/17 11:15 98.6 F 88 16 07/26/17 09:09 97.8 F 88 17 07/26/17 09:08 88 88 112/71 121/58 L 07/26/17 07:57 98.6 F 85 16 BP Pulse Ox Pulse Ox 07/26/17 15:17 07/26/17 11:15 122/59 L 95 07/26/17 09:09 112/71 96 07/26/17 09:08 95 07/26/17 07:57 96 Admit Weight 152 lb 4.8 oz Weight 141 lb 4.8 oz 07/25/17 07/26/17 07/27/17 06:59 06:59 06:59 Intake Total 1562 240 Output Total 750 Balance 812 240 - Physical Examination General/Neuro: alert & oriented x3 Neck: no JVD present Lungs: CTA (diminished at bases) Heart: RRR Abdomen: soft Extremities: other: (No edema) - Telemetry Telemetry Rhythm: SR with PAC 60-70s - Labs Result Diagrams: 07/26/17 04:17 07/26/17 04:17 Troponin/CKMB CK-MB (CK-2) 2.3 ng/mL (0-6.6) 07/25/17 10:53 Troponin I 0.516 ng/mL (< 0.028) H* 07/25/17 15:16 - Assessment/Plan 1. NSTEMI - stable; cont. monitor on tele; Cont. medial treatment at this time, no plan for further cardiac studies; on ASA and Statin; will start BBlocker and KAYLA when the pt's BP is stable 2. UTI - on IV Antibiotics; managed by PCP 3. Hypotension - Improving 4. AKD - Improved after cont. NS IV 5. DM type 2 - on ACHS BG with Insulin SS; managed by PCP 6. Hx of CVA - stable 7. Hyperlipidemia - on Statin med 8. Hypothyroidism - on Thyroid med 9. Tachycardia - Resolved MAR Reviewed Review of Systems - Review of Systems Constitutional: reports: no symptoms reported EENTM: reports: no symptoms reported Respiratory: reports: no symptoms reported Cardiac (ROS): reports: no symptoms reported ABD/GI: reports: no symptoms reported : reports: no symptoms reported Musculoskeletal: reports: no symptoms reported Skin: reports: no symptoms reported <Remedios Brewer - Last Filed: 07/26/17 19:25> Cardiology Progress Note - Objective Vital Signs Temp Pulse Pulse Pulse Resp BP BP 07/26/17 16:45 98.9 F 89 18 07/26/17 15:17 98 112/60 07/26/17 11:15 98.6 F 88 16 07/26/17 09:09 97.8 F 88 17 07/26/17 09:08 88 88 112/71 121/58 L 07/26/17 07:57 98.6 F 85 16 BP Pulse Ox Pulse Ox 07/26/17 16:45 116/58 L 94 L 07/26/17 15:17 07/26/17 11:15 122/59 L 95 07/26/17 09:09 112/71 96 07/26/17 09:08 95 07/26/17 07:57 96 Admit Weight 152 lb 4.8 oz Weight 141 lb 4.8 oz 07/25/17 07/26/17 07/27/17 06:59 06:59 06:59 Intake Total 1562 1230 Output Total 750 550 Balance 812 680 - Labs Result Diagrams: 07/26/17 04:17 07/26/17 04:17 Troponin/CKMB CK-MB (CK-2) 2.3 ng/mL (0-6.6) 07/25/17 10:53 Troponin I 0.516 ng/mL (< 0.028) H* 07/25/17 15:16 - Assessment/Plan Pt. seen and evaluated by me. She is more awake than when I saw her last night. She knows her name and the name of her arranging funeral director that is present at bedside. She seems to be responding to the medical treatments. I agree with the A/P by the CUSTOMER FACILITIES SUPERVISOR. No further cardiac workup or intervention is anticipated.
[2017-07-26] MEDS: Famotidine/PF 20 mg/2ml Vial SLOW IVP SCH (21:15)
[2017-07-26] MEDS: Dextrose 50% Abboject 50 ML SYRINGE SLOW IVP PRN (23:43)
[2017-07-27] MEDS: Dextrose 5 % And 0.9 % NaCl 1,000 ML IV SCH (05:23)
[2017-07-27] MEDS: Levothyroxine Sodium 125 MCG TAB PO SCH (05:32)
--- NOTE | 2017-07-27 05:44 | CON ---
DATE OF CONSULTATION: 07/25/2017 The patient was seen yesterday by me and this is a late dictation. HISTORY OF PRESENT ILLNESS: She is an unfortunate 86-year-old female who was seen approximately a mo nth ago in the hospital where she suffered a CVA. She was eventually taken home by truck crane operator helper who has been staying with her but noticed that she had not been eating very well, is becoming more lethargic , and she was then admitted to the hospital after having some actually failure to thrive and not doin g very well and becoming somewhat change in her mental status. She also at that time was found to perez ve elevated cardiac enzymes and we are being asked to evaluate her for this at this time. It appears that she does have some degree of dehydration and possible urinary tract infection with possible sep sis, but overall at this time, it is very difficult for me to get any history from this lady as she a ppears to be very lethargic at this time and there is no truck crane operator helper available this evening. She had a n echocardiogram performed in 05/2017, which showed an ejection fraction of 50%-55%. She does have m ultiple risk factors for coronary artery disease which include hypertension, hypercholesterolemia, an d diabetes; however, these cardiac enzymes, CPK-MB is only 2.3, a total CPK is 245, and the troponin I was still be considered indeterminate at 0.557 and then already decreasing down to 0.516, and this most likely is indicative of her dehydration and possibly tachycardia associated with this. She does have some EKG changes which are nonspecific; however, given her age of [age] years old, dementia, and r enal insufficiency which is rather acute, she is not a candidate for any aggressive cardiac intervent ions at this time and I would continue to treat her medically. PAST MEDICAL HISTORY: Please refer to the notes already dictated by the nurse practitioner for the p ast medical history social history, review of systems, allergies and family history which is noncontr ibutory given her age. PHYSICAL EXAMINATION: GENERAL: Reveals an elderly female. VITAL SIGNS: Blood pressure 104/79, heart rate is 110, respiratory rate is 22, O2 saturation is 100% . She is afebrile at this time. HEENT: Shows the head to be normocephalic, atraumatic. Carotid pulses are present. I cannot hear a ny significant bruits. CHEST: Clear to auscultation without any rales, rhonchi, or wheezing. CARDIOVASCULAR: At this time reveals a regular rate and rhythm. Normal S1, S2. There were no signi ficant murmurs, heaves, thrills, bruits, or rubs noted. ABDOMEN: Soft and nontender. She does not elicit any tenderness, any painful areas. EXTREMITIES: Showed no clubbing, cyanosis, or edema. She does have right-sided weakness, which is m ore so than the left side. SKIN: Warm and dry. There is no significant edema noted. The patient does appear to be relatively lethargic tonight and is very slow to give any response at all. IMPRESSION: An EKG shows sinus tachycardia with no specific ST segment changes, possibly some ischemi a in the inferior lateral leads, but again given her age, her dementia, her acute renal insufficiency with a creatinine of 1.93, she will be medical management only at this time. We will rehydrate the patient and see how she does and then continue from there. 2. Possible dehydration. She used to be undergoing fluid rehydration at this time. She did have a normal ejection fraction and should do well with volume replacement. 3. Possible urinary tract infection or sepsis. This will be dealt with by the primary care service. She has been placed on antibiotics. 4. Diabetes. At this time, the blood sugar is under good control. 4. Hypertension. She is actually hypotensive at this time, most likely due to dehydration and under lying infection. We will be more than happy to continue to follow the patient with you, but at this time, I would agree with the present management. I would not be aggressive for interventional standp oint with her. We would treat her medically as if she did have coronary artery disease.
[2017-07-27] MEDS ORDERED: Dextrose 10% in Water 1,000 ML IV SCH (06:45)
--- NOTE | 2017-07-27 09:12 | PDOC.CTH ---
<Denise Ramey - Last Filed: 07/27/17 09:12> Cardiology Progress Note - Subjective The pt seen and examined. No overnight events. No cardiac complaints. She is very lethergic this AM and could not answer to any qestions, open her eyes or follow any commands this AM. According to her caregiver, she has not eaten since yesterday lunch. She has been refusing any PO fluid intake. She has been spitting out her medication. Per her caregiver, she and the pt's Medical power of [employer] don't know whether she would like to have PEG tube placement or not. - Objective Vital Signs Temp Pulse Resp BP Pulse Ox 07/27/17 08:00 98.4 F 77 18 98 07/27/17 05:22 94 L 07/27/17 04:30 98.4 F 77 18 117/64 97 Admit Weight 152 lb 4.8 oz Weight 136 lb 8 oz 07/26/17 07/27/17 07/28/17 06:59 06:59 06:59 Intake Total 1562 1930 Output Total 750 1050 Balance 812 880 - Physical Examination General/Neuro: other: (very lethergic) Neck: no JVD present Lungs: CTA Heart: RRR Abdomen: soft Extremities: other: (No edemas) - Telemetry Telemetry Rhythm: SR with PACs - Labs Result Diagrams: 07/26/17 04:17 07/26/17 04:17 Troponin/CKMB CK-MB (CK-2) 2.3 ng/mL (0-6.6) 07/25/17 10:53 Troponin I 0.516 ng/mL (< 0.028) H* 07/25/17 15:16 - Assessment/Plan 1. NSTEMI - stable; cont. monitor on tele; Cont. medial treatment at this time, no plan for further cardiac workup or interventions; on ASA and Statin; will start BBlocker and KAYLA when the pt's BP is stable 2. UTI - on IV Antibiotics; managed by PCP 3. Hypotension - Improving 4. AKD - Improved after cont. NS IV 5. DM type 2 - Hypoglycemia; on IV D10 @ 30ml/h; managed by PCP 6. Hx of CVA - stable 7. Hyperlipidemia - on Statin med 8. Hypothyroidism - on Thyroid med 9. Tachycardia - Resolved MAR Reviewed Review of Systems - Review of Systems Constitutional: reports: see HPI EENTM: reports: see HPI Respiratory: reports: see HPI Cardiac (ROS): reports: see HPI ABD/GI: reports: see HPI : reports: see HPI <Remedios Brewer Pavel - Last Filed: 07/27/17 14:52> Cardiology Progress Note - Objective Vital Signs Temp Pulse Pulse Pulse Resp BP BP 07/27/17 11:20 98.5 F 80 16 07/27/17 10:05 83 91 127/61 142/106 H 07/27/17 08:00 98.4 F 77 18 07/27/17 05:22 07/27/17 04:30 98.4 F 77 18 BP Pulse Ox Pulse Ox Pulse Ox 07/27/17 11:20 111/77 98 07/27/17 10:05 98 98 07/27/17 08:00 98 07/27/17 05:22 94 L 07/27/17 04:30 117/64 97 Admit Weight 152 lb 4.8 oz Weight 136 lb 8 oz 07/26/17 07/27/17 07/28/17 06:59 06:59 06:59 Intake Total 1562 1930 Output Total 750 1050 Balance 812 880 - Labs Result Diagrams: 07/26/17 04:17 07/26/17 04:17 Troponin/CKMB CK-MB (CK-2) 2.3 ng/mL (0-6.6) 07/25/17 10:53 Troponin I 0.516 ng/mL (< 0.028) H* 07/25/17 15:16 - Assessment/Plan Pt. seen and eval. by me. i agree with the A/P by the SAFETY NET MAKER. Cardiac status is stable. No further cardiac workup anticipated. I will sign off. if any changes please page [facility] again.
[2017-07-27] MEDS: Aspirin 325 mg Enteric Coated Tablet PO SCH (09:24)
[2017-07-27] MEDS: Atorvastatin Calcium 10 MG TAB PO SCH (09:24)
[2017-07-27] MEDS: Heparin 5,000 UNITS/ML VIAL SC SCH ×2 (09:24→20:37)
--- NOTE | 2017-07-27 12:29 | PRG ---
DATE OF SERVICE: 07/27/2017 SUBJECTIVE: The patient was seen and examined at the bedside. She is with her family in the room. Her daughter is present with her and there were not any unexpected events overnight. The gra nddaughter tells me that the patient does not want to have any tube placement for feeding since she i s not really eating much and not drinking. OBJECTIVE: VITAL SIGNS: Blood pressure is 111/77, temperature is 98.5, pulse is 80, respiratory rate is 18 and pulse oximetry is 98% on room air. GENERAL: She follows my simple commands. HEENT: Her pupils are responding to light properly. Sclerae is nonicteric. Oral mucosa is moist. NECK: Supple. LUNGS: Clear. HEART: S1, S2 normal, no S3, no S4, no murmur. ABDOMEN: Soft, nontender, nondistended. EXTREMITIES: No clubbing, cyanosis or edema. NEUROLOGIC: She is following my simple commands. She is verbal but very limited way. She says just a few words. She does not answer all my questions. She has right-sided weakness which is more pron ounced in the right upper extremity than in the right leg. She follows my commands. Cranial nerves seem to be doing fine. LABORATORY DATA: Glycemia is ranging from 64-105. MICROBIOLOGY: As before, coagulase negative Staphylococcus aureus in 1 culture out of 2. IMPRESSION: 1. Acute kidney injury, improved with intravenous hydration. 2. Gio-RF-kavqvqx elevation myocardial infarction. Cardiology saw the patient and she is not a cand idate for any interventions. Medical therapy is recommended. 3. Diabetes mellitus type 2 with hypoglycemia recently. 4. History of cerebrovascular accident with right-sided hemiparesis. 5. Hyperlipidemia. 6. Hypertension. 7. Hypothyroidism, chronic. 10. Possible urinary tract infection. 11. Anorexia. PLAN: Continue D10 to support her hypoglycemia. Check cortisol level, start her on Megace for appet ite and continue her IV antibiotics which is Rocephin and vancomycin since her blood cultures one out of two positive for Staphylococcus coagulation negative. We will continue physical therapy and as I mentioned above, start Megace for her appetite.
[2017-07-27] MEDS ORDERED: Megestrol Acetate 800 MG/20 ML UDCUP PO SCH (12:30)
[2017-07-27] MEDS: Vancomycin HCl 750 MG in Sodium Chloride 0.9% 250 ML 250 ML IVPB SCH (12:59)
[2017-07-27] MEDS: Dextrose 10% in Water 1,000 ML IV SCH (12:59)
[2017-07-27] MEDS: cefTRIAXone\\ROCEPHIN 1 GM, Syringe 0.4 ML in Sterile Water 9.6 ML SLOW IVP SCH (13:02)
[2017-07-27] MEDS: Famotidine/PF 20 mg/2ml Vial SLOW IVP SCH (20:37)
[2017-07-28] MEDS: Dextrose 10% in Water 1,000 ML IV SCH (06:28)
[2017-07-28] MEDS: Levothyroxine Sodium 125 MCG TAB PO SCH (06:42)
[2017-07-28] MEDS ORDERED: Megestrol Acetate 800 MG/20 ML UDCUP PO SCH (09:00)
[2017-07-28] MEDS: Heparin 5,000 UNITS/ML VIAL SC SCH ×2 (10:45→21:56)
[2017-07-28] MEDS: Megestrol Acetate 800 MG/20 ML UDCUP PO SCH (10:45)
[2017-07-28] MEDS: Aspirin 325 mg Enteric Coated Tablet PO SCH (10:46)
[2017-07-28] MEDS: Atorvastatin Calcium 10 MG TAB PO SCH (10:46)
--- NOTE | 2017-07-28 11:59 | CT ---
CT OF ABDOMEN AND PELVIS PERFORMED WITHOUT CONTRAST ENHANCEMENT: HISTORY: Abdominal pain. FINDINGS: The lung bases are clear of any infiltrative process. The liver, spleen, pancreas, and gallbladder regions appear unremarkable given the limitations of a n oncontrast study. Right and left adrenal glands and right and left kidneys are normal in size. There is no significant periaortic or mesenteric adenopathy. There is a moderate amount of stool within the colon, particul leona the right colon and transverse colon. CT OF PELVIS PERFORMED WITHOUT CONTRAST ENHANCEMENT: A moderate amount of stool was seen in the rectosigmoid region. There is some wall thickening to the rectum region which is probably related to chronic constipation. A Fuentes catheter is present within the bladder. The appendix is not definitively identified, but I do not see any CT evidence for appe ndicitis. IMPRESSION: Findings suggesting constipation with suggestion of some chronic fecal impaction. POS: PATRIA
[2017-07-28 12:36] LABS: Vancomycin, Trough 6.5 ug/mL
[2017-07-28] MEDS: Vancomycin HCl 750 MG in Sodium Chloride 0.9% 250 ML 250 ML IVPB SCH (13:00)
--- NOTE | 2017-07-28 13:06 | PRG ---
DATE OF SERVICE: 07/28/2017 SUBJECTIVE: The patient was seen and examined at bedside. Granddaughter is present at the bedside d uring my visit. There is no any unexpected events overnight. She does not eat. She had her first d ose of Megace yesterday. OBJECTIVE: VITAL SIGNS: Blood pressure is 128/64, O2 saturation is 94, temperature is 98.0, pulse is 69 and res piratory rate is 20. HEENT: Head is atraumatic, normocephalic. Eyes: Sclerae nonicteric. Pupils respond to light bilat erally. Oral mucosa is moist. Tongue is covered with some whitish discharge, suspicious for Cynthia . NECK: Supple, no lymphadenopathy. Thyroid is not palpable. LUNGS: Clear. HEART: S1, S2 normal, no S3, no S4. ABDOMEN: Tender to palpation. There is some guarding all over. No specific area of pain is appreci ated. Bowel sounds are present. No organomegaly. EXTREMITIES: No clubbing, cyanosis or edema. NEUROLOGIC: She follows my commands. She is able to move her all 4 extremities. I do not really se e any weaknesses in her extremities. I do not see any focal deficits. LABORATORY DATA: Show glycemia is ranging from 92-116. Her cortisol level is 9.3. IMPRESSION: 1. Urinary tract infection on Rocephin. We will continue that treatment. 2. Abdominal pain of unclear etiology. We will do the CT with some oral contrast if it is possible and without IV contrast. 3. Hyperlipidemia. 4. Hypertension. 5. Hypothyroidism on replacement. 6. [id number] myocardial infarction, stable. Seen by tin tie machine operator automatic. Recommendation is aspirin and statin. No intervention. 7. Diabetes mellitus type 2 with some hypoglycemia. Normal cortisol level. The patient is not eati ng almost anything. As mentioned above, I am going to scan her abdomen and pelvis to look for some e xplanation why she all of a sudden stopped eating. This could be related to her infection. 8. Hyperlipidemia, on statin. 9. Tachycardia, resolved. 10. Anorexia. So, plan is to continue her D10 if her blood culture comes back. No change to the previous reading, which is one out of two positive for Staphylococcus. I am going to stop her vancomycin and continue her Rocephin. I will do the MARK on her tongue scraping and try to find out whether she has some Cand juvenal and continue Megace for appetite and continue PT and supportive care.
[2017-07-28] MEDS: cefTRIAXone\\ROCEPHIN 1 GM, Syringe 0.4 ML in Sterile Water 9.6 ML SLOW IVP SCH (13:50)
[2017-07-28] MEDS ORDERED: Vancomycin HCl 1.5 GM in Sodium Chloride 0.9% 250 ML 300 ML IVPB SCH (15:00)
[2017-07-28] MEDS: Famotidine/PF 20 mg/2ml Vial SLOW IVP SCH (21:56)
[2017-07-29] MEDS: Levothyroxine Sodium 125 MCG TAB PO SCH (05:24)
[2017-07-29 08:03] LABS: #Basophils 0.1 thou/uL (0.0-0.2); #Eosinphils 0.5 thou/uL (0.0-0.7); #Lymphocytes 2.7 thou/uL (1.20-3.40); #Monocytes 0.6 thou/uL (0.11-0.59); #Neutrophils 3.5 thou/uL (1.40-6.50); %Basophils 0.7 % (0.0-1.0); %Eosinophils 7.2 % (0.0-10.0); %Lymphocytes 37.2 % (21.0-51.0); %Monocytes 7.4 % (0.0-10.0); Hematocrit 37.3 % (36.0-47.0); Mean Platelet Volume 5.8 fL (7.4-10.4); Red Blood Cell (RBC) Count 3.96 mill/uL (4.20-5.40); White Blood Cell (WBC) Count 7.3 thou/uL (4.8-10.8)
[2017-07-29 08:22] LABS: ALT (SGPT) 10 U/L (8-55); AST (SGOT) 15 U/L (5-34); Alkaline Phosphatase 98 U/L (40-150); Anion Gap 9 mmol/L (10-20); BUN (Urea Nitrogen) 10 mg/dL (9.8-20.1); Bilirubin, Total 0.9 mg/dL (0.2-1.2); Calc. Creatinine Clearance 56 mL/min (70-130); Calcium 9.4 mg/dL (7.8-10.44); Carbon Dioxide 26 mmol/L (23-31); Chloride 111 mmol/L (98-107); Estimated GFR-MDRD Greater than 90; Globulin 3.5 g/dL (2.4-3.5); Protein, Total 6.5 g/dL (6.0-8.3)
[2017-07-29] MEDS: Dextrose 10% in Water 1,000 ML IV SCH (09:04)
[2017-07-29] MEDS: Aspirin 325 mg Enteric Coated Tablet PO SCH (09:05)
[2017-07-29] MEDS: Megestrol Acetate 800 MG/20 ML UDCUP PO SCH (09:06)
[2017-07-29] MEDS: Heparin 5,000 UNITS/ML VIAL SC SCH ×2 (09:06→20:51)
[2017-07-29] MEDS: Atorvastatin Calcium 10 MG TAB PO SCH (09:06)
[2017-07-29] MEDS ORDERED: Potassium Chloride 20 MEQ TAB PO SCH (09:30)
[2017-07-29] MEDS ORDERED: Bisacodyl 5 MG TAB PO SCH (09:45)
[2017-07-29] MEDS ORDERED: Fluconazole In NaCl,Iso-Osm 100 MG in Admixture Fee 2 EACH IVPB SCH ×4 (10:00)
--- NOTE | 2017-07-29 10:16 | PRG ---
DATE OF SERVICE: 07/29/2017 SUBJECTIVE: The patient is seen and examined at the bedside. Apparently, she spits out her medicati ons. She participates in physical therapy. She denies any pain. OBJECTIVE: VITAL SIGNS: Blood pressure is 122/63, pulse is 70, temperature is 98.2, respiratory rate is 18, and O2 saturation is 100%. HEENT: Her sclerae are nonicteric. Her conjunctivae are pinkish. Oral mucosa is moist. Tongue is covered with some whitish discharge, which is most likely Cynthia. NECK: Supple, no lymphadenopathy. LUNGS: Clear. HEART: S1, S2 normal, no S3, no S4. ABDOMEN: Soft, somewhat distended. Bowel sounds are present. EXTREMITIES: No clubbing, cyanosis, or edema. NEUROLOGICAL EXAMINATION: She follows my simple commands. She seems to be able to move all 4 extrem ities. It looks like she understands my questions. LABORATORY WORK: Showed white count of 7.3, hemoglobin 11.8, hematocrit 37.3, platelet count is 285. Sodium of 143, potassium 3.4, chloride 111, CO2 of 26, BUN 10, creatinine 0.69, albumin 3.0. Gleas on is ranging from 73-113. IMPRESSION: 1. Urinary tract infection. We will stop her Rocephin. 2. Abdominal pain of unclear etiology based on the CT of the abdomen and pelvis. There is not any a cute finding, although this was done without contrast. She has quite a bit of retained stool in her colon. We will start her on Dulcolax. 3. Anorexia. The patient is on Megace. 4. Hyperlipidemia. 5. Hypertension. 6. Hypothyroidism, on replacement. 7. Non-ST elevation myocardial infarction, stable, on aspirin and statin. No intervention is planne d. 8. Diabetes mellitus, type 2, now with hypoglycemia. The patient is still on D10 50 mL per hour and her glycemia is running in normal range. We will try to stop her D10 and see how she is able to navarrete dle her hypoglycemia. 9. Tachycardia, resolved. PLAN: To start her on Diflucan 100 mg IV piggyback every 24 hours for her thrush in her mouth. I st opped her Rocephin since she does not want to take much medicine orally. We will continue PT, and sh reji has 24-hour care at home, so she should be able to go back to her house as soon as her glycemia is controlled and that we are going to stop her D10 today and see how she handles that.
[2017-07-29] MEDS: Famotidine/PF 20 mg/2ml Vial SLOW IVP SCH (20:50)
[2017-07-30] MEDS: Levothyroxine Sodium 125 MCG TAB PO SCH (05:14)
[2017-07-30] MEDS: Atorvastatin Calcium 10 MG TAB PO SCH (08:58)
[2017-07-30] MEDS: Megestrol Acetate 800 MG/20 ML UDCUP PO SCH (08:58)
[2017-07-30] MEDS: Heparin 5,000 UNITS/ML VIAL SC SCH ×2 (08:58→21:00)
[2017-07-30] MEDS: Aspirin 325 mg Enteric Coated Tablet PO SCH (08:58)
[2017-07-30] MEDS: Fluconazole In NaCl,Iso-Osm 100 MG in Admixture Fee 2 EACH IVPB SCH ×2 (09:53)
--- NOTE | 2017-07-30 10:01 | PDOC.PN ---
- Subjective Encounter Start Date: 07/30/17 Encounter Start Time: 08:00 -: old records requested/rev pt is not able to swallow any oral intake, no fever, weak, body care manager bedside - Objective Resuscitation Status: Resuscitation Status DNR:Do Not Resuscitate MAR Reviewed: Yes Vital Signs & Weight: Vital Signs (12 hours) Temp Pulse Resp BP Pulse Ox 07/30/17 05:11 97.9 F 84 18 180/85 H 99 07/30/17 00:20 97.8 F 71 20 177/92 H 98 Weight Admit Weight 152 lb 4.8 oz Weight 149 lb 6.4 oz I&O: 07/29/17 07/30/17 07/31/17 06:59 06:59 06:59 Intake Total 1167 1505 Output Total 600 900 Balance 567 605 Result Diagrams: 07/29/17 07:32 07/30/17 04:26 Additional Labs: Accuchecks 07/30/17 07/29/17 07/29/17 06:26 19:47 16:39 POC Glucose 75 87 89 07/29/17 11:48 POC Glucose 81 EKG Reviewed by me: Yes (NSR) Phys Exam - Physical Examination Constitutional: NAD HEENT: PERRLA, sclera anicteric oral thrush Neck: no JVD, supple Respiratory: no wheezing, no rales, no rhonchi Cardiovascular: RRR, no significant murmur, no rub Gastrointestinal: soft, non-tender, no distention, positive bowel sounds Musculoskeletal: no edema, pulses present Neurological: moves all 4 limbs residual weakness Lymphatic: no nodes Psychiatric: normal affect Skin: no rash, normal turgor Dx/Plan (1) Acute kidney failure Status: Acute (2) NSTEMI (non-ST elevated myocardial infarction) Code(s): I21.4 - NON-ST ELEVATION (NSTEMI) MYOCARDIAL INFARCTION Status: Acute (3) UTI (urinary tract infection) Status: Acute (4) DM2 (diabetes mellitus, type 2) Status: Chronic (5) H/O: CVA (cerebrovascular accident) Code(s): Z86.73 - PRSNL HX OF TIA (TIA), AND CEREB INFRC W/O RESID DEFICITS Status: Chronic (6) HLD (hyperlipidemia) Code(s): E78.5 - HYPERLIPIDEMIA, UNSPECIFIED Status: Chronic (7) HTN (hypertension) Code(s): I10 - ESSENTIAL (PRIMARY) HYPERTENSION Status: Chronic (8) Hypothyroidism Code(s): E03.9 - HYPOTHYROIDISM, UNSPECIFIED Status: Chronic (9) Oropharyngeal dysphagia Code(s): R13.12 - DYSPHAGIA, OROPHARYNGEAL PHASE Status: Chronic - Plan cont current plan of care, plan discussed w/ family, continue antibiotics * pt is not safe for PO intake and her intake is also very limited * she will need PEG placement, otherwise she is at risk for aspiration and dehydration * will discuss today about these with MPOA * if MPOA agrees with PEG, then will consult GI for PEG * if she does not agree with PEG, then will consult home hospice * today DC tele * transfer to medical * medication reviewed as below * symptomatic treatment * continue oral care and diflucan for oral thrush. Review of Systems - Review of Systems Other: not reliable due to dementia and her current cognitive status - Medications/Allergies Allergies/Adverse Reactions: Allergies Allergy/AdvReac Type Severity Reaction Status Date / Time No Known Allergies Allergy Verified 06/03/17 04:29 Medications: Current Medications Acetaminophen (Tylenol) 650 mg PO Q4H PRN PRN Reason: Headache/Fever or Pain Al Hydroxide/Mg Hydroxide (Maalox) 30 ml PO Q6H PRN PRN Reason: Heartburn or Indigestion Aspirin (Ecotrin) 325 mg PO DAILY [facility] Last Admin: 07/30/17 08:58 Dose: Not Given Atorvastatin Calcium (Lipitor) 10 mg PO DAILY [facility] Last Admin: 07/30/17 08:58 Dose: Not Given Benzonatate (Tessalon) 100 mg PO Q4H PRN PRN Reason: Cough Bisacodyl (Dulcolax) 10 mg PO DAILYPRN PRN PRN Reason: Constipation Last Admin: 07/30/17 09:53 Dose: 10 mg Clonidine (Catapres) 0.1 mg PO Q4H PRN PRN Reason: Systolic BP > 180 Dextrose/Water (Dextrose 50%) 25 gm SLOW IVP PRN PRN PRN Reason: Hypoglycemia Last Admin: 07/26/17 23:43 Dose: 25 gm Famotidine (Pepcid) 20 mg SLOW IVP Q24HR [facility] Last Admin: 07/29/17 20:50 Dose: 20 mg Glucagon (Glucagon) 1 mg IM PRN PRN PRN Reason: Hypoglycemia Last Admin: 07/26/17 17:15 Dose: 1 mg Guaifenesin (Robitussin Sf) 200 mg PO Q4H PRN PRN Reason: Cough Heparin Sodium (Porcine) (Heparin) 5,000 units SC BID [facility] Last Admin: 07/30/17 08:58 Dose: 5,000 units Hydralazine HCl (Apresoline) 10 mg SLOW IVP Q4H PRN PRN Reason: Systolic BP > 180 Dextrose/Water (D5w) 1,000 mls @ 0 mls/hr IV .Q0M PRN; As Directed PRN Reason: Hypoglycemia Fluconazole/Sodium Chloride 100 mg/ Miscellaneous Medication 50 mls @ 100 mls/ hr IVPB DAILY [facility] Last Admin: 07/30/17 09:53 Dose: 50 mls Insulin Human Lispro (Humalog) 0 units SC .MODERATE SLIDING SC PRN PRN Reason: Moderate Correctional Scale Insulin Human Lispro (Humalog) 0 units SC .BEDTIME SLIDING SC PRN PRN Reason: Bedtime Correctional Scale Levothyroxine Sodium (Synthroid) 125 mcg PO 0600 [facility] Last Admin: 07/30/17 05:14 Dose: 125 mcg Loratadine (Claritin) 10 mg PO DAILYPRN PRN PRN Reason: Sinus Symptoms Magnesium Hydroxide (Milk Of Magnesium) 30 ml PO DAILYPRN PRN PRN Reason: Constipation Megestrol Acetate (Megace) 800 mg PO DAILY [facility] Last Admin: 07/30/17 08:58 Dose: 800 mg Nitroglycerin (Nitrostat) 0.4 mg SL Q5MIN PRN PRN Reason: Chest Pain Ondansetron HCl (Zofran) 4 mg IVP Q6H PRN PRN Reason: Nausea/Vomiting Senna (Senokot) 2 tab PO HSPRN PRN PRN Reason: Constipation Sodium Chloride (Flush - Normal Saline) 10 ml IVF Q12HR [facility] Last Admin: 07/30/17 09:16 Dose: 10 ml Sodium Chloride (Flush - Normal Saline) 10 ml IVF PRN PRN PRN Reason: Saline Flush Tramadol HCl (Ultram) 50 mg PO Q4H PRN PRN Reason: Moderate Pain (4-6)
--- NOTE | 2017-07-30 11:55 | PDOC.CTH ---
Cardiology Progress Note - Objective Vital Signs Temp Pulse Resp BP Pulse Ox 07/30/17 09:30 98.8 F 76 18 159/72 H 97 07/30/17 05:11 97.9 F 84 18 180/85 H 99 07/30/17 00:20 97.8 F 71 20 177/92 H 98 Admit Weight 152 lb 4.8 oz Weight 149 lb 6.4 oz 07/29/17 07/30/17 07/31/17 06:59 06:59 06:59 Intake Total 1167 1505 Output Total 600 900 Balance 567 605 - Labs Result Diagrams: 07/29/17 07:32 07/30/17 04:26 Troponin/CKMB CK-MB (CK-2) 2.3 ng/mL (0-6.6) 07/25/17 10:53 Troponin I 0.516 ng/mL (< 0.028) H* 07/25/17 15:16 - Assessment/Plan RN notified that the pt has not been on BBlocker for Dx of NSTEMI; Start Coreg 3.125mg BID and will adjust the dosage if the pt can tolerate.
[2017-07-30] MEDS ORDERED: Carvedilol 3.125 MG TAB PO SCH (12:00)
[2017-07-30] MEDS: Carvedilol 3.125 MG TAB PO SCH (17:18)
[2017-07-30] MEDS: Famotidine/PF 20 mg/2ml Vial SLOW IVP SCH (20:56)
--- NOTE | 2017-07-31 04:20 | CON ---
DATE OF CONSULTATION: 07/30/2017 CHIEF COMPLAINT: Trouble swallowing. HISTORY OF PRESENT ILLNESS: Ms. Love is an 86-year-old woman with dementia, who was admitted throu gh the emergency room on 07/25/2017 due to decreased appetite and not feeling well. Her caregiver teresita ought her in because she has not been eating or drinking anything for a couple of days. She was tach ycardic and noted to have a mildly elevated troponin at 0.557 and was diagnosed with a non-ST elevati on NC. She was rehydrated; however, she was noted to be unable to swallow anything. She was evaluat ed by Speech Pathology and was felt to be at risk for aspiration. She was given a trial of pureed so lids and with liquids; however, she has had minimal intake. She was felt to be not safe for any pablo d food consistency from an aspiration standpoint. GI was therefore consulted to evaluate for gastros diana tube placement. The primary service spoke with the medical power of director of dementia operations, the patient's maryann ce today and decision was made to proceed with a gastrostomy placement. PAST MEDICAL HISTORY: Stroke in 05/2017, hypothyroidism, advanced dementia, hypertension, diabetes, dyslipidemia. PAST SURGICAL HISTORY: Negative. FAMILY HISTORY: Negative for GI malignancies. SOCIAL HISTORY: No alcohol, tobacco, or drugs. ALLERGIES: No known drug allergies. MEDICATIONS: Currently include aspirin, atorvastatin, carvedilol, famotidine, fluconazole, heparin 5 000 units subcu twice daily, levothyroxine, and Megace. REVIEW OF SYSTEMS: Limited based on the patient's dementia. PHYSICAL EXAMINATION: VITAL SIGNS: Temperature 98.2, pulse 76, blood pressure 166/79. GENERAL: She is in no acute distress. She is awake and alert. She is oriented to her name and to [facility] city and to the year; however, she is unable to really contribute considerably to her medical hist ory. EYES: Her eyes have no scleral icterus. OROPHARYNX: Clear, without lesions. NECK: No cervical or supraclavicular lymphadenopathy. LUNGS: Clear to auscultation bilaterally. HEART: Regular rate and rhythm. ABDOMEN: Soft, mild tenderness in the abdomen diffusely without guarding. Bowel sounds are present. EXTREMITIES: No lower extremity edema. LABORATORY: White blood cell count 7.3, hemoglobin 11.8, platelets 285. Creatinine 0.69. AST 15, A LT 10, alkaline phosphatase 98, albumin 3.0. IMPRESSION: 1. Dysphagia, status post stroke and advanced dementia. Speech Pathology has evaluated her and poss ibly she has high risk for aspiration with all consistencies. 2. Protein-calorie malnutrition. RECOMMENDATIONS: Plan is for percutaneous endoscopic gastrostomy tube placement tomorrow.
[2017-07-31] MEDS: Levothyroxine Sodium 125 MCG TAB PO SCH (05:57)
[2017-07-31] MEDS: Heparin 5,000 UNITS/ML VIAL SC SCH ×2 (10:35→20:37)
[2017-07-31] MEDS: Atorvastatin Calcium 10 MG TAB PO SCH (10:35)
[2017-07-31] MEDS: Megestrol Acetate 800 MG/20 ML UDCUP PO SCH (10:35)
[2017-07-31] MEDS: Fluconazole In NaCl,Iso-Osm 100 MG in Admixture Fee 2 EACH IVPB SCH ×2 (10:35)
[2017-07-31] MEDS: Carvedilol 3.125 MG TAB PO SCH ×2 (10:35→17:05)
[2017-07-31] MEDS: Aspirin 325 mg Enteric Coated Tablet PO SCH (10:35)
[2017-07-31] MEDS: Dextrose 5 % And 0.9 % NaCl 1,000 ML IV SCH (11:43)
--- NOTE | 2017-07-31 12:28 | PDOC.PN ---
- Subjective Encounter Start Date: 07/31/17 Encounter Start Time: 09:00 Patient seen and examined. No new complaints. No overnight events - Objective Resuscitation Status: Resuscitation Status DNR:Do Not Resuscitate MAR Reviewed: Yes Vital Signs & Weight: Vital Signs (12 hours) Temp Pulse Resp BP Pulse Ox 07/31/17 08:00 98.9 F 85 20 148/77 H 97 07/31/17 06:00 98.9 F 77 18 154/79 H 98 Weight Admit Weight 152 lb 4.8 oz Weight 149 lb 6.4 oz I&O: 07/30/17 07/31/17 08/01/17 06:59 06:59 06:59 Intake Total 1505 110 Output Total 900 775 Balance 605 -665 Result Diagrams: 07/29/17 07:32 07/30/17 04:26 Additional Labs: Accuchecks 07/31/17 07/31/17 07/30/17 11:28 04:21 19:47 POC Glucose 69 L 80 71 07/30/17 16:50 POC Glucose 76 Phys Exam - Physical Examination Constitutional: NAD HEENT: PERRLA, moist MMs, sclera anicteric Neck: no JVD, supple Respiratory: no wheezing, no rales, no rhonchi Cardiovascular: RRR, no significant murmur, no rub Gastrointestinal: soft, non-tender, no distention, positive bowel sounds Musculoskeletal: no edema, pulses present Neurological: non-focal Lymphatic: no nodes Psychiatric: normal affect Skin: no rash, normal turgor Dx/Plan (1) Acute kidney failure Status: Acute (2) NSTEMI (non-ST elevated myocardial infarction) Code(s): I21.4 - NON-ST ELEVATION (NSTEMI) MYOCARDIAL INFARCTION Status: Acute (3) UTI (urinary tract infection) Status: Acute (4) DM2 (diabetes mellitus, type 2) Status: Chronic (5) H/O: CVA (cerebrovascular accident) Code(s): Z86.73 - PRSNL HX OF TIA (TIA), AND CEREB INFRC W/O RESID DEFICITS Status: Chronic (6) HLD (hyperlipidemia) Code(s): E78.5 - HYPERLIPIDEMIA, UNSPECIFIED Status: Chronic (7) HTN (hypertension) Code(s): I10 - ESSENTIAL (PRIMARY) HYPERTENSION Status: Chronic (8) Hypothyroidism Code(s): E03.9 - HYPOTHYROIDISM, UNSPECIFIED Status: Chronic (9) Oropharyngeal dysphagia Code(s): R13.12 - DYSPHAGIA, OROPHARYNGEAL PHASE Status: Chronic - Plan cont current plan of care, plan discussed w/ family, speech therapy * start IVF DNS at 70 ml per hour to prevent hypoglycemia as pt is NPO for procedure * today plan for PEG tube * consult dietitian for tube feeding * medication reviewed as below * symptomatic treatment * may need SNU placement. Review of Systems - Review of Systems Other: unable to review as pt is demented - Medications/Allergies Allergies/Adverse Reactions: Allergies Allergy/AdvReac Type Severity Reaction Status Date / Time No Known Allergies Allergy Verified 06/03/17 04:29 Medications: Current Medications Acetaminophen (Tylenol) 650 mg PO Q4H PRN PRN Reason: Headache/Fever or Pain Al Hydroxide/Mg Hydroxide (Maalox) 30 ml PO Q6H PRN PRN Reason: Heartburn or Indigestion Aspirin (Ecotrin) 325 mg PO DAILY [facility] Last Admin: 07/31/17 10:35 Dose: Not Given Atorvastatin Calcium (Lipitor) 10 mg PO DAILY [facility] Last Admin: 07/31/17 10:35 Dose: Not Given Benzonatate (Tessalon) 100 mg PO Q4H PRN PRN Reason: Cough Bisacodyl (Dulcolax) 10 mg PO DAILYPRN PRN PRN Reason: Constipation Last Admin: 07/30/17 09:53 Dose: 10 mg Carvedilol (Coreg) 3.125 mg PO BID-[facility] Last Admin: 07/31/17 10:35 Dose: 3.125 mg Clonidine (Catapres) 0.1 mg PO Q4H PRN PRN Reason: Systolic BP > 180 Dextrose/Water (Dextrose 50%) 25 gm SLOW IVP PRN PRN PRN Reason: Hypoglycemia Last Admin: 07/26/17 23:43 Dose: 25 gm Famotidine (Pepcid) 20 mg SLOW IVP Q24HR [facility] Last Admin: 07/30/17 20:56 Dose: 20 mg Glucagon (Glucagon) 1 mg IM PRN PRN PRN Reason: Hypoglycemia Last Admin: 07/26/17 17:15 Dose: 1 mg Guaifenesin (Robitussin Sf) 200 mg PO Q4H PRN PRN Reason: Cough Heparin Sodium (Porcine) (Heparin) 5,000 units SC BID [facility] Last Admin: 07/31/17 10:35 Dose: Not Given Hydralazine HCl (Apresoline) 10 mg SLOW IVP Q4H PRN PRN Reason: Systolic BP > 180 Dextrose/Water (D5w) 1,000 mls @ 0 mls/hr IV .Q0M PRN; As Directed PRN Reason: Hypoglycemia Fluconazole/Sodium Chloride 100 mg/ Miscellaneous Medication 50 mls @ 100 mls/ hr IVPB DAILY [facility] Last Admin: 07/31/17 10:35 Dose: 50 mls Dextrose/Sodium Chloride (D5 0.9% Ns) 1,000 mls @ 60 mls/hr IV .[id number] [facility] Last Admin: 07/31/17 11:43 Dose: 1,000 mls Insulin Human Lispro (Humalog) 0 units SC .MODERATE SLIDING SC PRN PRN Reason: Moderate Correctional Scale Insulin Human Lispro (Humalog) 0 units SC .BEDTIME SLIDING SC PRN PRN Reason: Bedtime Correctional Scale Levothyroxine Sodium (Synthroid) 125 mcg PO 0600 [facility] Last Admin: 07/31/17 05:57 Dose: Not Given Loratadine (Claritin) 10 mg PO DAILYPRN PRN PRN Reason: Sinus Symptoms Magnesium Hydroxide (Milk Of Magnesium) 30 ml PO DAILYPRN PRN PRN Reason: Constipation Megestrol Acetate (Megace) 800 mg PO DAILY [facility] Last Admin: 07/31/17 10:35 Dose: Not Given Nitroglycerin (Nitrostat) 0.4 mg SL Q5MIN PRN PRN Reason: Chest Pain Ondansetron HCl (Zofran) 4 mg IVP Q6H PRN PRN Reason: Nausea/Vomiting Senna (Senokot) 2 tab PO HSPRN PRN PRN Reason: Constipation Sodium Chloride (Flush - Normal Saline) 10 ml IVF Q12HR [facility] Last Admin: 07/31/17 10:36 Dose: 10 ml Sodium Chloride (Flush - Normal Saline) 10 ml IVF PRN PRN PRN Reason: Saline Flush Tramadol HCl (Ultram) 50 mg PO Q4H PRN PRN Reason: Moderate Pain (4-6)
[2017-07-31 12:34] VITALS: BMI 22.7
[2017-07-31] MEDS ORDERED: CEFAZOLIN/Water 2 GM/20 ML SYRINGE ONE (15:44)
[2017-07-31] MEDS ORDERED: Lidocaine 1% PF 5 ML VIAL ONE (16:48)
[2017-07-31] MEDS ORDERED: Propofol 200 MG/20 ML VIAL ONE (16:48)
[2017-07-31] MEDS: Dextrose 50% Abboject 50 ML SYRINGE SLOW IVP PRN (17:02)
[2017-07-31] MEDS ORDERED: Sodium Bicarbonate Tab 325 MG TAB PER TUBE PRN (19:24)
[2017-07-31] MEDS ORDERED: Pancrelipase DR 12000 1 CAP FS PRN (19:24)
[2017-07-31] MEDS: Famotidine/PF 20 mg/2ml Vial SLOW IVP SCH (20:19)
[2017-07-31] MEDS: traMADol HCl 50 MG TAB PO PRN (20:19)
[2017-08-01] MEDS: Dextrose 5 % And 0.9 % NaCl 1,000 ML IV SCH (05:10)
[2017-08-01] MEDS: Levothyroxine Sodium 125 MCG TAB PO SCH (05:11)
[2017-08-01] MEDS: traMADol HCl 50 MG TAB PO PRN ×4 (05:15→17:34)
--- NOTE | 2017-08-01 07:06 | OP ---
PREPROCEDURE DIAGNOSES: 1. Oropharyngeal dysphasia. 2. History of dementia with request for percutaneous endoscopic gastrostomy tube placement. POSTPROCEDURE DIAGNOSES: 1. Normal esophagus, stomach and duodenum. 2. Percutaneous endoscopic gastrostomy tube placed by Ponsky pull technique with no complications. ANESTHESIA: TIVA, 2 grams Ancef given preoperatively for infection prophylaxis. PROCEDURE IN DETAIL: The patient's family was informed of the risks, benefits, possible complication s of endoscopy including perforation, bleeding, reactions to medication and aspiration, informed cons ent was obtained. The patient was brought to the endoscopy suite where she was sedated in gradual fa shion. Once she was comfortable, a bite block was placed in the incisural orifice. The endoscope wa s advanced through the esophagus, stomach and the second and third portion of the duodenum and slowly removed. There was good visualization of the mucosa. There were no masses, lesions or arteriovenou s malformations identified. Adequate site for PEG tube placement was identified by transillumination and finger indentation and after the abdomen was prepped and draped in sterile fashion, a PEG tube w as placed by Ponsky pull technique. Second look confirmed good placement. Abdominal binder was to b e placed on the abdomen by the recovery room nurses to prevent the patient pulling out as she has bee n pulling out the lines in the preoperative area. She can start tube feeds this evening.
[2017-08-01] MEDS: Famotidine 20 MG TAB PER TUBE SCH ×2 (08:56→21:35)
[2017-08-01] MEDS: Lisinopril 5 MG TAB PO SCH (08:56)
[2017-08-01] MEDS: Carvedilol 3.125 MG TAB PO SCH ×2 (08:56→17:36)
[2017-08-01] MEDS: Fluconazole 100 MG TAB PER TUBE SCH (08:57)
[2017-08-01] MEDS: Heparin 5,000 UNITS/ML VIAL SC SCH ×2 (08:57→21:35)
[2017-08-01] MEDS: Atorvastatin Calcium 10 MG TAB PO SCH (08:57)
[2017-08-01] MEDS: Megestrol Acetate 800 MG/20 ML UDCUP PO SCH (08:57)
--- NOTE | 2017-08-01 11:20 | PDOC.PN ---
- Subjective Encounter Start Date: 08/01/17 Encounter Start Time: 09:00 Patient seen and examined. No new complaints. No overnight events - Objective Resuscitation Status: Resuscitation Status DNR:Do Not Resuscitate MAR Reviewed: Yes Vital Signs & Weight: Vital Signs (12 hours) Temp Pulse Resp BP BP Pulse Ox 08/01/17 08:56 74 102/63 08/01/17 08:00 98.5 F 74 22 H 102/63 95 08/01/17 03:54 97.8 F 61 18 107/67 9 L 08/01/17 00:00 97.4 F L 78 18 112/69 94 L Weight Admit Weight 152 lb 4.8 oz Weight 149 lb 6.4 oz I&O: 07/31/17 08/01/17 08/02/17 06:59 06:59 06:59 Intake Total 110 2664 240 Output Total 775 1000 Balance -665 1664 240 Result Diagrams: 07/29/17 07:32 07/30/17 04:26 Additional Labs: Accuchecks 07/31/17 07/31/17 07/31/17 18:56 16:45 15:13 POC Glucose 130 H 60 L 69 L 07/31/17 11:28 POC Glucose 69 L Phys Exam - Physical Examination Constitutional: NAD HEENT: PERRLA, moist MMs, sclera anicteric Neck: no JVD, supple Respiratory: no wheezing, no rales, no rhonchi Cardiovascular: RRR, no significant murmur, no rub Gastrointestinal: soft, non-tender, no distention, positive bowel sounds PEG+ Musculoskeletal: no edema, pulses present Neurological: moves all 4 limbs Lymphatic: no nodes Psychiatric: normal affect Skin: no rash, normal turgor Dx/Plan (1) Acute kidney failure Status: Acute (2) NSTEMI (non-ST elevated myocardial infarction) Code(s): I21.4 - NON-ST ELEVATION (NSTEMI) MYOCARDIAL INFARCTION Status: Acute (3) UTI (urinary tract infection) Status: Acute (4) DM2 (diabetes mellitus, type 2) Status: Chronic (5) H/O: CVA (cerebrovascular accident) Code(s): Z86.73 - PRSNL HX OF TIA (TIA), AND CEREB INFRC W/O RESID DEFICITS Status: Chronic (6) HLD (hyperlipidemia) Code(s): E78.5 - HYPERLIPIDEMIA, UNSPECIFIED Status: Chronic (7) HTN (hypertension) Code(s): I10 - ESSENTIAL (PRIMARY) HYPERTENSION Status: Chronic (8) Hypothyroidism Code(s): E03.9 - HYPOTHYROIDISM, UNSPECIFIED Status: Chronic (9) Oropharyngeal dysphagia Code(s): R13.12 - DYSPHAGIA, OROPHARYNGEAL PHASE Status: Chronic - Plan cont current plan of care, community mental health social worker * DC IVF * today change tube feeding formula with standard 1.2 * if with standard formula, her blood sugar controlled, will arrange that * tomorrow will check HBA1c to see overall control * if blood sugar remains high, then will change to glucerna formula * today will see how she does with tube feeding * family wanted to send her home with home health * expecting discharge tomorrow * medication reviewed as below * symptomatic treatment. Review of Systems - Review of Systems Other: unable to review due to dementia - Medications/Allergies Allergies/Adverse Reactions: Allergies Allergy/AdvReac Type Severity Reaction Status Date / Time No Known Allergies Allergy Verified 06/03/17 04:29 Medications: Current Medications Acetaminophen (Tylenol) 650 mg PO Q4H PRN PRN Reason: Headache/Fever or Pain Al Hydroxide/Mg Hydroxide (Maalox) 30 ml PO Q6H PRN PRN Reason: Heartburn or Indigestion Lipase/Protease/Amylase (Cristian Choi [id number]) 1 cap FS .PER PROTOCOL PRN PRN Reason: TUBE OCCLUSION PROTOCOL Aspirin (Aspirin Chewable) 81 mg PER TUBE DAILY [facility] Last Admin: 08/01/17 08:56 Dose: 81 mg Atorvastatin Calcium (Lipitor) 10 mg PO DAILY [facility] Last Admin: 08/01/17 08:57 Dose: 10 mg Benzonatate (Tessalon) 100 mg PO Q4H PRN PRN Reason: Cough Bisacodyl (Dulcolax) 10 mg PO DAILYPRN PRN PRN Reason: Constipation Last Admin: 07/30/17 09:53 Dose: 10 mg Carvedilol (Coreg) 3.125 mg PO BID-[facility] Last Admin: 08/01/17 08:56 Dose: 3.125 mg Clonidine (Catapres) 0.1 mg PO Q4H PRN PRN Reason: Systolic BP > 180 Dextrose/Water (Dextrose 50%) 25 gm SLOW IVP PRN PRN PRN Reason: Hypoglycemia Last Admin: 07/31/17 17:02 Dose: 25 gm Famotidine (Pepcid) 20 mg PER TUBE BID [facility] Last Admin: 08/01/17 08:56 Dose: 20 mg Fluconazole (Diflucan) 100 mg PER TUBE DAILY [facility] Last Admin: 08/01/17 08:57 Dose: 100 mg Glucagon (Glucagon) 1 mg IM PRN PRN PRN Reason: Hypoglycemia Last Admin: 07/26/17 17:15 Dose: 1 mg Guaifenesin (Robitussin Sf) 200 mg PO Q4H PRN PRN Reason: Cough Heparin Sodium (Porcine) (Heparin) 5,000 units SC BID [facility] Last Admin: 08/01/17 08:57 Dose: 5,000 units Hydralazine HCl (Apresoline) 10 mg SLOW IVP Q4H PRN PRN Reason: Systolic BP > 180 Dextrose/Water (D5w) 1,000 mls @ 0 mls/hr IV .Q0M PRN; As Directed PRN Reason: Hypoglycemia Insulin Human Lispro (Humalog) 0 units SC .MODERATE SLIDING SC PRN PRN Reason: Moderate Correctional Scale Insulin Human Lispro (Humalog) 0 units SC .BEDTIME SLIDING SC PRN PRN Reason: Bedtime Correctional Scale Levothyroxine Sodium (Synthroid) 125 mcg PO 0600 [facility] Last Admin: 08/01/17 05:11 Dose: 125 mcg Lisinopril (Zestril) 5 mg PO DAILY [facility] Last Admin: 08/01/17 08:56 Dose: Not Given Loratadine (Claritin) 10 mg PO DAILYPRN PRN PRN Reason: Sinus Symptoms Magnesium Hydroxide (Milk Of Magnesium) 30 ml PO DAILYPRN PRN PRN Reason: Constipation Megestrol Acetate (Megace) 800 mg PO DAILY [facility] Last Admin: 08/01/17 08:57 Dose: 800 mg Nitroglycerin (Nitrostat) 0.4 mg SL Q5MIN PRN PRN Reason: Chest Pain Ondansetron HCl (Zofran) 4 mg IVP Q6H PRN PRN Reason: Nausea/Vomiting Senna (Senokot) 2 tab PO HSPRN PRN PRN Reason: Constipation Sodium Bicarbonate (Bicarbonate, Sodium) 650 mg PER TUBE .PER PROTOCOL PRN PRN Reason: ENTERAL TUBE OCCLUSION Sodium Chloride (Flush - Normal Saline) 10 ml IVF Q12HR [facility] Last Admin: 08/01/17 08:59 Dose: 10 ml Sodium Chloride (Flush - Normal Saline) 10 ml IVF PRN PRN PRN Reason: Saline Flush Tramadol HCl (Ultram) 50 mg PO Q4H PRN PRN Reason: Moderate Pain (4-6) Last Admin: 08/01/17 08:58 Dose: 50 mg
[2017-08-01] MEDS ORDERED: Sodium Chloride 0.9% 1,000 ML IV SCH (18:30)
[2017-08-02] MEDS: Levothyroxine Sodium 125 MCG TAB PO SCH (05:33)
--- NOTE | 2017-08-02 05:51 | PRG ---
DATE OF SERVICE: 08/01/2017 SUBJECTIVE: Ms. Love is sleeping. She is demented. OBJECTIVE: VITAL SIGNS: Stable. ABDOMEN: Her PEG tube site looks fine. There is no erythema, exudate or drainage. She is toleratin g tube feeds. Bumper was loosened slightly. ASSESSMENT: Dementia status post PEG tube placement. No complications notable at this time. If I can be of further assistance, please do not hesitate to contact me.
[2017-08-02 06:30] LABS: Hemoglobin A1c 5.2 % (4.0-6.0)
[2017-08-02 08:27] LABS: ALT (SGPT) Less than 7 U/L (8-55); AST (SGOT) 12 U/L (5-34); Alkaline Phosphatase 86 U/L (40-150); Anion Gap 12 mmol/L (10-20); BUN (Urea Nitrogen) 20 mg/dL (9.8-20.1); Bilirubin, Total 0.6 mg/dL (0.2-1.2); Calc. Creatinine Clearance 42 mL/min (70-130); Calcium 9.1 mg/dL (7.8-10.44); Carbon Dioxide 20 mmol/L (23-31); Chloride 109 mmol/L (98-107); Estimated GFR-MDRD 63; Globulin 3.3 g/dL (2.4-3.5); Magnesium 1.7 mg/dL (1.6-2.6); Phosphorus 3.1 mg/dL (2.3-4.7); Protein, Total 6.1 g/dL (6.0-8.3)
[2017-08-02 08:30] LABS: #Eosinphils 0.3 thou/uL (0.0-0.7); #Lymphocytes 1.9 thou/uL (1.20-3.40); #Monocytes 0.8 thou/uL (0.11-0.59); #Neutrophils 7.2 thou/uL (1.40-6.50); %Basophils 0.4 % (0.0-1.0); %Lymphocytes 18.5 % (21.0-51.0); %Monocytes 7.8 % (0.0-10.0); Hematocrit 36.1 % (36.0-47.0); Mean Platelet Volume 6.9 fL (7.4-10.4); Red Blood Cell (RBC) Count 3.87 mill/uL (4.20-5.40); White Blood Cell (WBC) Count 10.3 thou/uL (4.8-10.8)
[2017-08-02] MEDS: Famotidine 20 MG TAB PER TUBE SCH ×2 (08:37→21:00)
[2017-08-02] MEDS: Heparin 5,000 UNITS/ML VIAL SC SCH ×2 (08:37→21:00)
[2017-08-02] MEDS: Fluconazole 100 MG TAB PER TUBE SCH (08:37)
[2017-08-02] MEDS: Carvedilol 3.125 MG TAB PO SCH ×2 (08:37→17:31)
[2017-08-02] MEDS: Megestrol Acetate 800 MG/20 ML UDCUP PO SCH (08:37)
[2017-08-02] MEDS: Atorvastatin Calcium 10 MG TAB PO SCH (08:37)
[2017-08-02] MEDS: traMADol HCl 50 MG TAB PO PRN ×2 (08:37→21:00)
[2017-08-02] MEDS: Lisinopril 5 MG TAB PO SCH (08:38)
--- NOTE | 2017-08-02 10:35 | DIS ---
DATE OF ADMISSION: 07/25/2017 DATE OF DISCHARGE: 08/02/2017 PRIMARY CARE PHYSICIAN: Dr. James Azevedo. DISCHARGE DISPOSITION: Home with home health. PRIMARY DISCHARGE DIAGNOSES: 1. Non-ST elevation myocardial infarction, type 2 due to demand ischemia. 2. Hypotension due to volume depletion. 3. Acute kidney failure, prerenal etiology. 4. Oropharyngeal dysphagia required PEG tube placement. 5. Failure to thrive in adult due to oropharyngeal dysphagia. 6. Hypoglycemia associated with diabetes type 2. 7. Urinary tract infection treated in hospital. SECONDARY DISCHARGE DIAGNOSES: Hypothyroidism, hypertension, dyslipidemia, history of cerebrovascular accident with residual dysphagia, diet controlled diabetes. PRIMARY PROCEDURE/OPERATION: PEG tube placement required for oropharyngeal dysphagia. RADIOLOGICAL INVESTIGATION: Chest x-ray on admission showed no acute cardiopulmonary process. Abdomen and pelvis CT scan showed constipation and fecal impaction. SIGNIFICANT LABS: WBC 10.3, hemoglobin 11.7, platelets 294. Sodium 137, potassium 4.2, BUN 20, creatinine 1.01, calcium 9.1, magnesium 1.7, AST 12, ALT less than 7, alkaline phosphatase 86, albumin 2.8. Urinalysis suggestive of UTI. Blood culture negative. DISCHARGE MEDICATIONS: Lipitor 10 mg per tube daily, Coreg 3.125 mg per tube b.i.d., Pepcid 20 mg per tube b.i.d., Lasix 20 mg per tube daily, Synthroid 125 mcg per tube daily, lisinopril 2.5 mg per tube daily. CONTRAINDICATIONS: None. CODE STATUS: DNR. INPATIENT CONSULTANTS: Dr. Breen was consulted for PEG tube placement. Dr. Brewer was consulted for abnormal troponin. TEST RESULTS PENDING ON DISCHARGE: None. ALLERGIES: No known drug allergy. DISCHARGE PLAN: Post hospital, the patient is discharged to home. Subsequently , the patient will follow up with primary care physician. HOSPITAL COURSE: An 86-year-old female who has previous history of CVA involving left middle cerebral artery and since then, the patient has residual weakness and dysphagia. Patient was having very poor p.o. intake. The patient was not able to provide any history on admission, but she was found with acute kidney failure. She was hypotensive and tachycardic. She was suspected for urinary tract infection. She had demand ischemia of myocardium. Main issue was patient's poor p.o. intake because of oropharyngeal dysphagia, she was significantly dehydrated. She was admitted to telemetry floor. Cardiology was consulted for abnormal troponin, but it was not related with ischemia. Patient has underlying oropharyngeal dysphagia and we called speech therapy, but patient was not safe for any kind of oral intake and that is why we consulted GI and GI did PEG tube placement. We got approval from Jackie power of assistant district attorney for this particular patient. With IV fluid hydration, her kidney failure improved. Her electrolytes improved. This patient was hypoglycemic. Her hemoglobin A1c is 5.2. She was on oral diabetic medication, which we discontinued during this admission. She does not require any Glucerna, but at this point, we are arranging tube feeding formula with Jevity 1.2. She has finished antibiotic therapy while in hospital. Patient and family member does not want to send her to prison and they have 24-hour caregiver and we provided patient education and that is how to take care of this patient at home. She was also treated with Diflucan while in hospital for her oral thrush. At this point, the patient needs only supportive care with the skin care with the frequent turning and mouth care and PEG tube care. She is tolerating tube feeding very well. We are arranging tube feeding formula today and later on today we will discharge her home. The patient is seen and examined. Plan of care discussed with the patient and bell neck hammerer. REVIEW OF SYSTEMS: Not possible from patient because of dementia. VITAL SIGNS: Today, temperature 98.6, pulse 86, respiratory rate 20, saturation 98%, blood pressure 110/72. Weight 149 pounds. GENERAL: The patient is currently alert, awake, no obvious acute distress. HEAD: Normocephalic, atraumatic. EYES: Pupils round, reactive to light. Extraocular muscle intact. ENT: Oropharynx within normal limits. LUNGS: Clear to auscultation without any rhonchi. CARDIAC: S1, S2 regular without any murmur. ABDOMEN: Soft and benign. PEG tube in place. EXTREMITIES: No edema. NEUROLOGIC: Nonfocal examination. This patient has stage II sacrococcygeal pressure ulcer, which was present on admission. Paperwork for discharge done. Discharge medication reconciliation done. [facility]
--- NOTE | 2017-08-02 14:24 | PDOC.PN ---
- Subjective Encounter Start Date: 08/02/17 Encounter Start Time: 07:25 Patient seen and examined. No new complaints. No overnight events - Objective Resuscitation Status: Resuscitation Status DNR:Do Not Resuscitate MAR Reviewed: Yes Vital Signs & Weight: Vital Signs (12 hours) Temp Pulse Resp BP BP Pulse Ox 08/02/17 08:38 72 110/72 08/02/17 08:00 98.6 F 86 20 110/72 98 Weight Admit Weight 152 lb 4.8 oz Weight 149 lb 6.4 oz I&O: 08/01/17 08/02/17 08/03/17 06:59 06:59 06:59 Intake Total 2664 2330 230 Output Total 1000 200 100 Balance 1664 2130 130 Result Diagrams: 08/02/17 05:03 08/02/17 05:03 Additional Labs: Accuchecks 08/02/17 08/02/17 08/01/17 11:03 04:15 21:47 POC Glucose 118 H 88 88 08/01/17 08/01/17 19:03 16:11 POC Glucose 78 93 Phys Exam - Physical Examination Constitutional: NAD HEENT: PERRLA, moist MMs, sclera anicteric Neck: no JVD, supple Respiratory: no wheezing, no rales, no rhonchi Cardiovascular: RRR, no significant murmur, no rub Gastrointestinal: soft, no distention, positive bowel sounds PEG+ Musculoskeletal: no edema, pulses present residual weakness and dysphagia Psychiatric: normal affect Skin: no rash, normal turgor Dx/Plan (1) Acute kidney failure Status: Acute (2) NSTEMI (non-ST elevated myocardial infarction) Code(s): I21.4 - NON-ST ELEVATION (NSTEMI) MYOCARDIAL INFARCTION Status: Acute (3) UTI (urinary tract infection) Status: Acute (4) DM2 (diabetes mellitus, type 2) Status: Chronic (5) H/O: CVA (cerebrovascular accident) Code(s): Z86.73 - PRSNL HX OF TIA (TIA), AND CEREB INFRC W/O RESID DEFICITS Status: Chronic (6) HLD (hyperlipidemia) Code(s): E78.5 - HYPERLIPIDEMIA, UNSPECIFIED Status: Chronic (7) HTN (hypertension) Code(s): I10 - ESSENTIAL (PRIMARY) HYPERTENSION Status: Chronic (8) Hypothyroidism Code(s): E03.9 - HYPOTHYROIDISM, UNSPECIFIED Status: Chronic (9) Oropharyngeal dysphagia Code(s): R13.12 - DYSPHAGIA, OROPHARYNGEAL PHASE Status: Chronic - Plan cont current plan of care, plan discussed w/ family, pediatric social worker * pt is tolerating tube feeding, * today correctional case records supervisor will work on arrangement for [facility] 1.2 * her blood sugar are controlled, so will be ok with [employer] 1.2 * medication reviewed as below * symptomatic treatment * possible discharge today. Review of Systems - Review of Systems Other: unable to review as pt is demented - Medications/Allergies Allergies/Adverse Reactions: Allergies Allergy/AdvReac Type Severity Reaction Status Date / Time No Known Allergies Allergy Verified 06/03/17 04:29 Medications: Current Medications Acetaminophen (Tylenol) 650 mg PO Q4H PRN PRN Reason: Headache/Fever or Pain Al Hydroxide/Mg Hydroxide (Maalox) 30 ml PO Q6H PRN PRN Reason: Heartburn or Indigestion Lipase/Protease/Amylase (Cristian Choi [id number]) 1 cap FS .PER PROTOCOL PRN PRN Reason: TUBE OCCLUSION PROTOCOL Aspirin (Aspirin Chewable) 81 mg PER TUBE DAILY [facility] Last Admin: 08/02/17 08:37 Dose: 81 mg Atorvastatin Calcium (Lipitor) 10 mg PO DAILY [facility] Last Admin: 08/02/17 08:37 Dose: 10 mg Benzonatate (Tessalon) 100 mg PO Q4H PRN PRN Reason: Cough Bisacodyl (Dulcolax) 10 mg PO DAILYPRN PRN PRN Reason: Constipation Last Admin: 07/30/17 09:53 Dose: 10 mg Carvedilol (Coreg) 3.125 mg PO BID-WM [facility] Last Admin: 08/02/17 08:37 Dose: 3.125 mg Clonidine (Catapres) 0.1 mg PO Q4H PRN PRN Reason: Systolic BP > 180 Dextrose/Water (Dextrose 50%) 25 gm SLOW IVP PRN PRN PRN Reason: Hypoglycemia Last Admin: 07/31/17 17:02 Dose: 25 gm Famotidine (Pepcid) 20 mg PER TUBE BID [facility] Last Admin: 08/02/17 08:37 Dose: 20 mg Fluconazole (Diflucan) 100 mg PER TUBE DAILY [facility] Last Admin: 08/02/17 08:37 Dose: 100 mg Glucagon (Glucagon) 1 mg IM PRN PRN PRN Reason: Hypoglycemia Last Admin: 07/26/17 17:15 Dose: 1 mg Guaifenesin (Robitussin Sf) 200 mg PO Q4H PRN PRN Reason: Cough Heparin Sodium (Porcine) (Heparin) 5,000 units SC BID [facility] Last Admin: 08/02/17 08:37 Dose: 5,000 units Hydralazine HCl (Apresoline) 10 mg SLOW IVP Q4H PRN PRN Reason: Systolic BP > 180 Dextrose/Water (D5w) 1,000 mls @ 0 mls/hr IV .Q0M PRN; As Directed PRN Reason: Hypoglycemia Insulin Human Lispro (Humalog) 0 units SC .MODERATE SLIDING SC PRN PRN Reason: Moderate Correctional Scale Insulin Human Lispro (Humalog) 0 units SC .BEDTIME SLIDING SC PRN PRN Reason: Bedtime Correctional Scale Levothyroxine Sodium (Synthroid) 125 mcg PO 0600 [facility] Last Admin: 08/02/17 05:33 Dose: 125 mcg Lisinopril (Zestril) 5 mg PO DAILY [facility] Last Admin: 08/02/17 08:38 Dose: Not Given Loratadine (Claritin) 10 mg PO DAILYPRN PRN PRN Reason: Sinus Symptoms Magnesium Hydroxide (Milk Of Magnesium) 30 ml PO DAILYPRN PRN PRN Reason: Constipation Megestrol Acetate (Megace) 800 mg PO DAILY [facility] Last Admin: 08/02/17 08:37 Dose: 800 mg Nitroglycerin (Nitrostat) 0.4 mg SL Q5MIN PRN PRN Reason: Chest Pain Ondansetron HCl (Zofran) 4 mg IVP Q6H PRN PRN Reason: Nausea/Vomiting Senna (Senokot) 2 tab PO HSPRN PRN PRN Reason: Constipation Sodium Bicarbonate (Bicarbonate, Sodium) 650 mg PER TUBE .PER PROTOCOL PRN PRN Reason: ENTERAL TUBE OCCLUSION Sodium Chloride (Flush - Normal Saline) 10 ml IVF Q12HR [facility] Last Admin: 08/02/17 08:38 Dose: 10 ml Sodium Chloride (Flush - Normal Saline) 10 ml IVF PRN PRN PRN Reason: Saline Flush Tramadol HCl (Ultram) 50 mg PO Q4H PRN PRN Reason: Moderate Pain (4-6) Last Admin: 12/07/17 08:37 Dose: 50 mg
[2017-08-03] MEDS: Levothyroxine Sodium 125 MCG TAB PO SCH (05:15)
[2017-08-03] MEDS: traMADol HCl 50 MG TAB PO PRN (05:15)
[2017-08-03 07:56] VITALS: BP 107/70; TEMP 98.2
[2017-08-03] MEDS: Heparin 5,000 UNITS/ML VIAL SC SCH (08:23)
[2017-08-03] MEDS: Carvedilol 3.125 MG TAB PO SCH (08:23)
[2017-08-03] MEDS: Famotidine 20 MG TAB PER TUBE SCH (08:23)
[2017-08-03] MEDS: Atorvastatin Calcium 10 MG TAB PO SCH (08:23)
[2017-08-03] MEDS: Megestrol Acetate 800 MG/20 ML UDCUP PO SCH (08:23)
[2017-08-03] MEDS: Fluconazole 100 MG TAB PER TUBE SCH (08:23)
[2017-08-03] MEDS: Lisinopril 5 MG TAB PO SCH (08:36)
--- NOTE | 2017-08-03 09:25 | PDOC.PN ---
- Subjective Encounter Start Date: 08/03/17 Encounter Start Time: 08:30 Patient seen and examined. No new complaints. No overnight events pt is tolerating tube feeding and blood sugar controlled - Objective Resuscitation Status: Resuscitation Status DNR:Do Not Resuscitate MAR Reviewed: Yes Vital Signs & Weight: Vital Signs (12 hours) Temp Pulse Resp BP Pulse Ox 08/03/17 08:36 73 08/03/17 07:55 98.2 F 73 16 107/70 98 Weight Admit Weight 152 lb 4.8 oz Weight 149 lb 6.4 oz I&O: 08/02/17 08/03/17 08/04/17 06:59 06:59 06:59 Intake Total 2330 1542 Output Total 200 100 Balance 2130 1442 Result Diagrams: 08/02/17 05:03 08/02/17 05:03 Additional Labs: Accuchecks 08/03/17 08/02/17 08/02/17 05:00 19:42 16:29 POC Glucose 109 141 H 110 08/02/17 11:03 POC Glucose 118 H Phys Exam - Physical Examination Constitutional: NAD HEENT: PERRLA, moist MMs, sclera anicteric Neck: no JVD, supple Respiratory: no wheezing, no rales, no rhonchi Cardiovascular: RRR, no significant murmur, no rub Gastrointestinal: soft, non-tender, no distention, positive bowel sounds PEG+ Musculoskeletal: no edema, pulses present residual weakness and dysphagia from cva Psychiatric: normal affect Skin: no rash, normal turgor Dx/Plan (1) Acute kidney failure Status: Resolved (2) NSTEMI (non-ST elevated myocardial infarction) Code(s): I21.4 - NON-ST ELEVATION (NSTEMI) MYOCARDIAL INFARCTION Status: Resolved Comment: demand ischemia, type -2 (3) UTI (urinary tract infection) Status: Resolved Comment: treated in hospital (4) DM2 (diabetes mellitus, type 2) Status: Chronic Comment: now controlled without meds (5) H/O: CVA (cerebrovascular accident) Code(s): Z86.73 - PRSNL HX OF TIA (TIA), AND CEREB INFRC W/O RESID DEFICITS Status: Chronic Comment: with residual weakness and dysphagia, required PEG (6) HLD (hyperlipidemia) Code(s): E78.5 - HYPERLIPIDEMIA, UNSPECIFIED Status: Chronic (7) HTN (hypertension) Code(s): I10 - ESSENTIAL (PRIMARY) HYPERTENSION Status: Chronic (8) Hypothyroidism Code(s): E03.9 - HYPOTHYROIDISM, UNSPECIFIED Status: Chronic (9) Oropharyngeal dysphagia Code(s): R13.12 - DYSPHAGIA, OROPHARYNGEAL PHASE Status: Chronic Comment: Due to recent CVA, and now not safe for any PO intake, required PEG - Plan cont current plan of care, plan discussed w/ family * once peg tube feeding supply arranged, she is stable for discharge * medication reviewed as below * symptomatic treatment * spoke with piano case and bench assembler * no change in my discharge summery . Review of Systems - Review of Systems Other: not reliable due to dementia - Medications/Allergies Allergies/Adverse Reactions: Allergies Allergy/AdvReac Type Severity Reaction Status Date / Time No Known Allergies Allergy Verified 06/03/17 04:29 Medications: Current Medications Acetaminophen (Tylenol) 650 mg PO Q4H PRN PRN Reason: Headache/Fever or Pain Al Hydroxide/Mg Hydroxide (Maalox) 30 ml PO Q6H PRN PRN Reason: Heartburn or Indigestion Lipase/Protease/Amylase (Cristian Choi [id number]) 1 cap FS .PER PROTOCOL PRN PRN Reason: TUBE OCCLUSION PROTOCOL Aspirin (Aspirin Chewable) 81 mg PER TUBE DAILY [facility] Last Admin: 08/03/17 08:23 Dose: 81 mg Atorvastatin Calcium (Lipitor) 10 mg PO DAILY [facility] Last Admin: 08/03/17 08:23 Dose: 10 mg Benzonatate (Tessalon) 100 mg PO Q4H PRN PRN Reason: Cough Bisacodyl (Dulcolax) 10 mg PO DAILYPRN PRN PRN Reason: Constipation Last Admin: 07/30/17 09:53 Dose: 10 mg Carvedilol (Coreg) 3.125 mg PO BID-WM [facility] Last Admin: 08/03/17 08:23 Dose: 3.125 mg Clonidine (Catapres) 0.1 mg PO Q4H PRN PRN Reason: Systolic BP > 180 Dextrose/Water (Dextrose 50%) 25 gm SLOW IVP PRN PRN PRN Reason: Hypoglycemia Last Admin: 07/31/17 17:02 Dose: 25 gm Famotidine (Pepcid) 20 mg PER TUBE BID [facility] Last Admin: 08/03/17 08:23 Dose: 20 mg Fluconazole (Diflucan) 100 mg PER TUBE DAILY [facility] Last Admin: 08/03/17 08:23 Dose: 100 mg Glucagon (Glucagon) 1 mg IM PRN PRN PRN Reason: Hypoglycemia Last Admin: 07/26/17 17:15 Dose: 1 mg Guaifenesin (Robitussin Sf) 200 mg PO Q4H PRN PRN Reason: Cough Heparin Sodium (Porcine) (Heparin) 5,000 units SC BID [facility] Last Admin: 08/03/17 08:23 Dose: 5,000 units Hydralazine HCl (Apresoline) 10 mg SLOW IVP Q4H PRN PRN Reason: Systolic BP > 180 Dextrose/Water (D5w) 1,000 mls @ 0 mls/hr IV .Q0M PRN; As Directed PRN Reason: Hypoglycemia Insulin Human Lispro (Humalog) 0 units SC .MODERATE SLIDING SC PRN PRN Reason: Moderate Correctional Scale Insulin Human Lispro (Humalog) 0 units SC .BEDTIME SLIDING SC PRN PRN Reason: Bedtime Correctional Scale Levothyroxine Sodium (Synthroid) 125 mcg PO 0600 [facility] Last Admin: 08/03/17 05:15 Dose: 125 mcg Lisinopril (Zestril) 5 mg PO DAILY [facility] Last Admin: 08/03/17 08:36 Dose: Not Given Loratadine (Claritin) 10 mg PO DAILYPRN PRN PRN Reason: Sinus Symptoms Magnesium Hydroxide (Milk Of Magnesium) 30 ml PO DAILYPRN PRN PRN Reason: Constipation Megestrol Acetate (Megace) 800 mg PO DAILY [facility] Last Admin: 08/03/17 08:23 Dose: 800 mg Nitroglycerin (Nitrostat) 0.4 mg SL Q5MIN PRN PRN Reason: Chest Pain Ondansetron HCl (Zofran) 4 mg IVP Q6H PRN PRN Reason: Nausea/Vomiting Senna (Senokot) 2 tab PO HSPRN PRN PRN Reason: Constipation Sodium Bicarbonate (Bicarbonate, Sodium) 650 mg PER TUBE .PER PROTOCOL PRN PRN Reason: ENTERAL TUBE OCCLUSION Sodium Chloride (Flush - Normal Saline) 10 ml IVF Q12HR [facility] Last Admin: 08/02/17 21:01 Dose: 10 ml Sodium Chloride (Flush - Normal Saline) 10 ml IVF PRN PRN PRN Reason: Saline Flush Tramadol HCl (Ultram) 50 mg PO Q4H PRN PRN Reason: Moderate Pain (4-6) Last Admin: 08/03/17 05:15 Dose: 50 mg
[2017-08-03] MEDS ORDERED: diphenhydrAMINE 25 MG CAP PO PRN (12:03)
== END 2017-08-03 16:08 | disposition home health service (06) | DRG 281 ==
LOC: ERS 10:29 → 2NO 14:49 → T4-B 07-30 13:16
PROVIDERS: ADMIT Internal Medicine; ATTEND Internal Medicine
PROC: 0DH63UZ Insertion of Feeding Device into Stomach, Percutaneous Approach (ICD-10-PCS; principal; 2017-07-31)
DX: I21.4 Non-ST elevation (NSTEMI) myocardial infarction (principal); N17.9 Acute kidney failure, unspecified; L89.152 Pressure ulcer of sacral region, stage 2; I95.9 Hypotension, unspecified; I69.951 Hemiplegia and hemiparesis following unspecified cerebrovascular disease affecting right dominant side; E11.649 Type 2 diabetes mellitus with hypoglycemia without coma; R13.12 Dysphagia, oropharyngeal phase; E86.0 Dehydration; F03.90 Unspecified dementia, unspecified severity, without behavioral disturbance, psychotic disturbance, mood disturbance, and anxiety; N39.0 Urinary tract infection, site not specified; R63.0 Anorexia; E03.9 Hypothyroidism, unspecified; M54.9 Dorsalgia, unspecified; I10 Essential (primary) hypertension; E78.5 Hyperlipidemia, unspecified; F41.9 Anxiety disorder, unspecified; Z79.84 Long term (current) use of oral hypoglycemic drugs; Z79.82 Long term (current) use of aspirin; I24.8 Other forms of acute ischemic heart disease; Z66 Do not resuscitate; Z68.22 Body mass index [BMI] 22.0-22.9, adult; R00.0 Tachycardia, unspecified; R62.7 Adult failure to thrive
CPT/HCPCS: 36415; 36416; 51702; 71010; 74176; 80048; 80053; 80202; 81001; 81003; 81015; 82533; 82550; 82553; 83036; 83605; 83735; 84100; 84132; 84484; 85025; 87040; 87149; 87220; 93005; 93010; 94640; 96360; 96361; A4216; A4353; G8978-GP-CN; G8979-GP-CM; G8987-GO-CN; G8988-GO-CN; G8989-GO-CN; G8996-GN-CN; G8997-GN-CM; J0360; J0696; J1450; J1610; J1644; J2001; J2704; J3370; J7050; J7620; S0028

== ENCOUNTER 2017-09-12 17:52 | Inpatient (IN) | payer MEDICARE, BC ==
[2017-09-12] MEDS ORDERED: Acetaminophen 650 MG Suppository ONE (18:22)
[2017-09-12 18:37] LABS: #Lymphocytes 0.7 thou/uL (1.20-3.40); #Monocytes 0.9 thou/uL (0.11-0.59); #Neutrophils 6.3 thou/uL (1.40-6.50); %Basophils 0.5 % (0.0-1.0); %Eosinophils 0.1 % (0.0-10.0); %Lymphocytes 8.4 % (21.0-51.0); %Monocytes 11.7 % (0.0-10.0); %Neutrophils 79.3 % (42.0-75.0); Mean Corpuscular Hemoglobin 30.2 pg (27.0-31.0); Mean Corpuscular Volume 94.4 fl (81.0-99.0); Mean Platelet Volume 6.7 fL (7.4-10.4); Platelet Count 290 thou/uL (130-400); RBC Distribution Width 13.1 % (11.5-14.5); Red Blood Cell (RBC) Count 3.96 mill/uL (4.20-5.40); White Blood Cell (WBC) Count 7.9 thou/uL (4.8-10.8)
[2017-09-12 18:43] LABS: INR-International Normal Ratio 1.3; PTT 32.3 SEC (22.9-36.1); Prothrombin Time 16.1 SEC (12.0-14.7)
[2017-09-12 18:45] LABS: Bilirubin Negative (Negative); Blood, Urine Large (Negative); Clarity TURBID (Clear); Glucose, Urine (Dipstick) 250 mg/dL (Negative); Leukocyte Negative (Negative); Nitrite Negative (Negative); Protein, Urine (Dipstick) > or equal to 300 mg/dL (Neg-Trace)
[2017-09-12 18:48] LABS: Bacteria/HPF None Seen HPF (None Seen); WBC/HPF 0-3 HPF (0-3)
[2017-09-12 18:53] LABS: Pathc Cast-AUWi Flag 7.72 (0-2.49)
[2017-09-12] MEDS ORDERED: Oseltamivir 75 MG CAP PO SCH (19:00)
[2017-09-12 19:02] LABS: ALT (SGPT) 67 U/L (8-55); AST (SGOT) 55 U/L (5-34); Albumin 3.5 g/dL (3.4-4.8); Alkaline Phosphatase 176 U/L (40-150); Anion Gap 17 mmol/L (10-20); BUN (Urea Nitrogen) 17 mg/dL (9.8-20.1); Bilirubin, Total 0.9 mg/dL (0.2-1.2); CK (CPK) 88 U/L (29-168); Calc. Creatinine Clearance 0 mL/min (70-130); Calcium 10.2 mg/dL (7.8-10.44); Carbon Dioxide 23 mmol/L (23-31); Chloride 99 mmol/L (98-107); Estimated GFR-MDRD 73; Globulin 4.9 g/dL (2.4-3.5); Glucose 236 mg/dL (83-110); Lipase 67 U/L (8-78); Potassium 5.1 mmol/L (3.5-5.1); Protein, Total 8.4 g/dL (6.0-8.3); Sodium 134 mmol/L (136-145)
[2017-09-12 19:03] LABS: Hyaline Casts/LPF NONE SEEN LPF (0-3 Hyaline); Manual Microscopic Reviewed? No Path Casts Seen
[2017-09-12 19:04] LABS: Renal Epithelial None Seen HPF (0-3); Transitional Epithelial NONE SEEN HPF (0-3)
[2017-09-12 19:04] LABS: CKMB 1.2 ng/mL (0-6.6)
[2017-09-12 19:10] LABS: Troponin I 0.447 ng/mL (< 0.028)
--- NOTE | 2017-09-12 19:16 | RAD ---
PORTABLE AP CHEST X-RAY 09/12/17 HISTORY: Fever. Foul smelling urine. COMPARISON: 07/25/17. FINDINGS: The cardiac silhouette is magnified by projection but stable in size. Pulmonary vasculature is within normal limits. There is blunting of the lateral costophrenic angles bilaterally which may be related to tiny bilateral pleural effusions versus pleural and parenchymal scarring. There is mild atelectas is at the left lung base. The lungs are otherwise clear. vascular calcifications seen in the thoracic aorta. Degenerative changes are noted in the spine. IMPRESSION: Tiny bilateral pleural effusions with associated atelectasis. POS: [facility]
[2017-09-12] MEDS ORDERED: Ondansetron ODT 4 MG TAB SL PRN (21:06)
[2017-09-12] MEDS ORDERED: Ondansetron HCl/PF 4 MG/2 ML Vial IVP PRN (21:06)
[2017-09-12 22:26] LABS: Troponin I 0.501 ng/mL (< 0.028)
[2017-09-12 22:52] LABS: Lactic Acid 1.6 mmol/L (0.5-2.2)
[2017-09-12] MEDS ORDERED: Vancomycin HCl 1 GM in Premix Bag 1 BAG IVPB SCH (23:00)
[2017-09-12 23:09] VITALS: BMI 26.5
[2017-09-12] MEDS ORDERED: Dextrose 5% in Water 1,000 ML IV PRN (23:32)
[2017-09-12] MEDS ORDERED: Insulin Regular 300 UNITS/3 ML VIAL SC PRN (23:32)
[2017-09-12] MEDS ORDERED: Lorazepam 1 MG TAB PO PRN (23:32)
[2017-09-12] MEDS ORDERED: Dextrose 50% Abboject 50 ML SYRINGE SLOW IVP PRN (23:32)
[2017-09-12] MEDS ORDERED: Acetaminophen 325 MG TAB PO PRN (23:32)
[2017-09-12] MEDS ORDERED: hydrALAZINE 20 MG/ML VIAL SLOW IVP PRN (23:32)
[2017-09-12] MEDS ORDERED: Sodium Chloride 0.9% 1,000 ML IV SCH (23:45)
[2017-09-13 01:15] LABS: Troponin I 0.536 ng/mL (< 0.028)
[2017-09-13 05:20] LABS: Anion Gap 12 mmol/L (10-20); BUN (Urea Nitrogen) 16 mg/dL (9.8-20.1); Calc. Creatinine Clearance 69 mL/min (70-130); Calcium 8.7 mg/dL (7.8-10.44); Carbon Dioxide 25 mmol/L (23-31); Chloride 103 mmol/L (98-107); Estimated GFR-MDRD Greater than 90; Glucose 131 mg/dL (83-110); Sodium 136 mmol/L (136-145)
[2017-09-13] MEDS: Levothyroxine Sodium 125 MCG TAB PER TUBE SCH (05:39)
[2017-09-13] MEDS ORDERED: Vancomycin HCl 1 GM in Premix Bag 1 BAG IVPB SCH (06:00)
--- NOTE | 2017-09-13 06:12 | HP ---
CHIEF COMPLAINT: Fever of 102 and desaturating oxygen levels of 88 on room air, and heart rate of 10 2. BRIEF HOSPITAL COURSE: This is an 86-year-old pleasant female who was apparently in her usual state of health, was brought to the hospital because of the fever, fast heart rate and hypoxia. The patien t was recently discharged from our hospital on the 08/02/2017 after being treated for non-ST LA eleva tion type 2 due to demand ischemia. The patient also had oropharyngeal dysphagia because of the old CVA and had a PEG tube placed. The patient right now has been sent for the evaluation and treatment of fever, high fast rate, and -like symptom. She had a flu test in the emergency room and it te sted positive for flu A. The patient is aphasic and most of the history is obtained from the chart. The patient has code status which is a DNR from her last admission. Right now, patient is admitted for further evaluation and treatment of the fever, possibly secondary to the flu. The patient's ches t x-ray and UA are clear in the initial evaluation. REVIEW OF SYSTEMS: Cannot be obtained as the patient is aphasic and demented. PAST MEDICAL HISTORY: Significant of recent acute cerebrovascular accident involving the left middle cerebral artery on 05/2017, hypothyroidism, chronic back pain, muscle spasms, severe advanced tamela ia, hypertension, diabetes mellitus, dyslipidemia, aphasia, dysphagia status post PEG tube placement. The patient also has a history of hypothyroidism, hypertension, and dyslipidemia. SOCIAL HISTORY: Lives at home with care provider. No history of tobacco, alcohol or drug use. FAMILY HISTORY: Negative for diabetes or hypertension. ALLERGIES: No known drug allergies. MEDICATIONS: Please see list. PHYSICAL EXAMINATION: VITAL SIGNS: Fever of 102.6 recorded at home with a heart rate of 102 with 88% room air sats. GENERAL: Patient is lying in bed, moaning, is not interactive, does not follow commands. HEENT: Atraumatic, normocephalic. Pupils equally round, reactive to light. Extraocular movements i ntact. Mucous membranes moist. NECK: No JVD. CHEST: Breath sounds heard. No rales or rhonchi. HEART: S1, S2. No murmurs or gallops. ABDOMEN: Soft, obese. SKIN: Has no rashes, no bruises. No decubitus ulcers noted. NEUROLOGIC: Cannot be fully evaluated, but patient moves all 4 extremities. LABORATORY DATA: WBC count is 7.9, hemoglobin is 12, potassium is 5.1, creatinine is 0.8. Lactic ac id was 2.7, now is 1.6. Troponin 0.4 has gone up to 0.5. AST is 55, ALT is 67, tested positive for flu. Chest x-ray is negative. EKG shows atrial fibrillation with RVR. ASSESSMENT AND PLAN: 1. Systemic inflammatory response syndrome secondary to flu influenza A. We will put the patient on Tamiflu, blood cultures and empiric treatment with Levaquin. 2. Elevated troponin atrial fibrillation with rapid ventricular response. We will trend troponins a nd follow Cardiology. Consult Cardiology. 3. Recent cerebrovascular accident in the left middle cerebral artery, rendering patient aphasic and we will monitor that. 4. Oropharyngeal dysphagia, status post PEG tube placement. 5. History of dementia. 6. Diabetes mellitus. We will put the patient on insulin sliding scale. 7. Hypothyroidism. We will continue Levaquin. 8. Episode of hypoxia. We will do p.r.n. oxygen, neb treatments, and monitor the patient. 9. CODE STATUS: DNR from previous admission indicates a DNR, [facility] 10. Sequential compression devices for deep venous thrombosis prophylaxis. Follow the patient and ricci cruz recommendations a clinical course evolves.
[2017-09-13 06:34] LABS: Hemoglobin 9.8 g/dL (12.0-16.0); Mean Corpuscular Hemoglobin 29.5 pg (27.0-31.0); Mean Corpuscular Volume 95.3 fl (81.0-99.0); Mean Platelet Volume 6.9 fL (7.4-10.4); Platelet Count 239 thou/uL (130-400); RBC Distribution Width 13.3 % (11.5-14.5); Red Blood Cell (RBC) Count 3.31 mill/uL (4.20-5.40)
[2017-09-13 06:41] LABS: Band 6 % (5-11); Lymphocytes 24 % (21-51); MDiff Complete? YES; Monocytes 19 % (0-10); Neutrophil 51 % (42-75)
[2017-09-13] MEDS ORDERED: Diabetic Tussin 200 MG/10 ML UDCUP PER TUBE PRN (08:14)
[2017-09-13] MEDS ORDERED: Nitroglycerin 0.4 MG TAB (25 Tab Bottle) SL PRN (08:14)
[2017-09-13] MEDS ORDERED: Mag-Al 1200 mg/1200 mg/30 ML UDCUP PER TUBE PRN (08:14)
[2017-09-13] MEDS ORDERED: Zolpidem Tartrate 5 MG TAB PER TUBE PRN (08:14)
[2017-09-13] MEDS ORDERED: Chloraseptic Spray 180 ml Bottle PO PRN (08:14)
[2017-09-13] MEDS ORDERED: HYDROcodone/Acetaminophen 5/325 mg Tablet PER TUBE PRN (08:14)
[2017-09-13] MEDS ORDERED: Artificial Tears 18 DROP/0.9 ML EA EYE PRN (08:14)
[2017-09-13] MEDS ORDERED: Milk Of Magnesia 30 ML UDCUP PER TUBE PRN (08:14)
[2017-09-13] MEDS ORDERED: Sodium Chloride 0.65% Nasal 44 ML BOT EA NARE PRN (08:14)
[2017-09-13] MEDS ORDERED: Loperamide HCl 2 MG CAP PER TUBE PRN (08:14)
[2017-09-13] MEDS ORDERED: Loratadine 10 MG TAB PER TUBE PRN (08:14)
[2017-09-13] MEDS ORDERED: Senokot 8.6 MG TAB PER TUBE PRN (08:14)
[2017-09-13] MEDS ORDERED: Eucerin (Mineral Oil/Petrolatum,White) 30 gm Jar TOP PRN (08:14)
[2017-09-13] MEDS ORDERED: Lorazepam 1 MG TAB PER TUBE PRN (08:17)
[2017-09-13] MEDS ORDERED: Acetaminophen 325 MG TAB PER TUBE PRN (08:17)
[2017-09-13] MEDS ORDERED: VANCOMYCIN IVPB PRN (08:18)
[2017-09-13] MEDS ORDERED: Aspirin 325 MG TAB PER TUBE SCH (09:00)
--- NOTE | 2017-09-13 10:44 | PDOC.PN ---
- Subjective Encounter Start Date: 09/13/17 Encounter Start Time: 07:20 -: non-verbal, old records requested/rev pt is non verbal, intensive care nurse bedside, Patient seen and examined. No overnight events - Objective Resuscitation Status: Resuscitation Status DNR:Do Not Resuscitate MAR Reviewed: Yes Vital Signs & Weight: Vital Signs (12 hours) Temp Pulse Resp BP Pulse Ox 09/13/17 04:01 99.6 F 94 20 139/80 100 09/13/17 00:00 98.6 F 80 20 140/76 97 Weight Admit Weight 169 lb 6.4 oz Weight 169 lb 6.4 oz I&O: 09/12/17 09/13/17 09/14/17 06:59 06:59 06:59 Intake Total 406 Output Total 250 Balance 156 Result Diagrams: 09/13/17 04:09 09/13/17 04:09 Additional Labs: Accuchecks 09/13/17 05:48 POC Glucose 130 H Radiology Reviewed by me: Yes EKG Reviewed by me: Yes Phys Exam - Physical Examination Constitutional: NAD HEENT: PERRLA, sclera anicteric dry MM Neck: no JVD, supple Respiratory: no wheezing, no rhonchi reduced air entry at base Cardiovascular: RRR, no significant murmur, no rub Gastrointestinal: soft, non-tender, no distention, positive bowel sounds Musculoskeletal: no edema, pulses present unable to examine Lymphatic: no nodes Deviation from normal: unable to assess Skin: no rash, normal turgor Dx/Plan (1) Acute respiratory failure with hypoxia Code(s): J96.01 - ACUTE RESPIRATORY FAILURE WITH HYPOXIA Status: Acute (2) Atrial fibrillation with RVR Code(s): I48.91 - UNSPECIFIED ATRIAL FIBRILLATION Status: Acute Comment: now rate controlled (3) Influenza A Code(s): J10.1 - FLU DUE TO OTH IDENT INFLUENZA VIRUS W OTH RESP MANIFEST Status: Acute (4) Lactic acidosis Code(s): E87.2 - ACIDOSIS Status: Acute (5) Non-ST elevation myocardial infarction (NSTEMI), type 2 Code(s): I21.A1 - MYOCARDIAL INFARCTION TYPE 2 Status: Acute (6) Sepsis with acute organ dysfunction Code(s): A41.9 - SEPSIS, UNSPECIFIED ORGANISM; R65.20 - SEVERE SEPSIS WITHOUT SEPTIC SHOCK Status: Acute (7) Transaminitis Code(s): R74.0 - NONSPEC ELEV OF LEVELS OF TRANSAMNS & LACTIC ACID DEHYDRGNSE Status: Acute (8) DM2 (diabetes mellitus, type 2) Status: Chronic Comment: (9) H/O: CVA (cerebrovascular accident) Code(s): Z86.73 - PRSNL HX OF TIA (TIA), AND CEREB INFRC W/O RESID DEFICITS Status: Chronic Comment: (10) HLD (hyperlipidemia) Code(s): E78.5 - HYPERLIPIDEMIA, UNSPECIFIED Status: Chronic (11) HTN (hypertension) Code(s): I10 - ESSENTIAL (PRIMARY) HYPERTENSION Status: Chronic (12) Hypothyroidism Code(s): E03.9 - HYPOTHYROIDISM, UNSPECIFIED Status: Chronic (13) Oropharyngeal dysphagia Code(s): R13.12 - DYSPHAGIA, OROPHARYNGEAL PHASE Status: Chronic Comment: with PEG - Plan cont current plan of care, plan discussed w/ family, continue antibiotics, social professionals * continue tamiflu * continue levaquin and vancomycin * will work on arranging home hospice * continue tube feeding * DC IVF * resume selected home meds * prognosis is very poor * will consider discharging her home with hospice on discharge * cardiology consulted. Review of Systems - Review of Systems Other: unable to review due to nonverbal status - Medications/Allergies Allergies/Adverse Reactions: Allergies Allergy/AdvReac Type Severity Reaction Status Date / Time No Known Allergies Allergy Verified 09/12/17 23:09 Medications: Current Medications Acetaminophen (Tylenol) 650 mg PER TUBE Q4H PRN PRN Reason: Headache/Fever or Pain Hydrocodone Bitart/Acetaminophen ([place] 5/325) 1 tab PER TUBE Q4H PRN PRN Reason: Moderate Pain (4-6) Al Hydroxide/Mg Hydroxide (Maalox) 15 ml PER TUBE Q4H PRN PRN Reason: Heartburn or Indigestion Albuterol/Ipratropium (Duoneb) 3 ml NEB Q6H PRN PRN Reason: SOB &/or Wheezing Artificial Tears (Tears Naturale) 0 drop EA EYE PRN PRN PRN Reason: Dry Eyes Atorvastatin Calcium (Lipitor) 10 mg PER TUBE DAILY [facility] Carvedilol (Coreg) 3.125 mg PER TUBE [facility] Dextrose/Water (Dextrose 50%) 25 gm SLOW IVP PRN PRN PRN Reason: Hypoglycemia Famotidine (Pepcid) 20 mg PER TUBE BID [facility] Furosemide (Lasix) 20 mg PER TUBE BID [facility] Glucagon (Glucagon) 1 mg IM PRN PRN PRN Reason: Hypoglycemia Guaifenesin (Robitussin Sf) 200 mg PER TUBE Q4H PRN PRN Reason: Cough Hydralazine HCl (Apresoline) 10 mg SLOW IVP Q4H PRN PRN Reason: Systolic BP > 180 Dextrose/Water (D5w) 1,000 mls @ 0 mls/hr IV .Q0M PRN; As Directed PRN Reason: Hypoglycemia Levofloxacin 750 mg/ Device 150 mls @ 100 mls/hr IVPB 1800 [facility] Vancomycin HCl 1 gm/ Device 200 mls @ 200 mls/hr IVPB 0600,1800 [facility] Insulin Human Regular (Humulin R) 0 units SC .MODERATE SLIDING SC PRN PRN Reason: Moderate Correctional Scale Levothyroxine Sodium (Synthroid) 125 mcg PER TUBE 0600 [facility] Last Admin: 09/13/17 05:39 Dose: 125 mcg Lisinopril (Zestril) 2.5 mg PER TUBE DAILY [facility] Loperamide HCl (Imodium) 2 mg PER TUBE PRN PRN PRN Reason: Diarrhea/Loose Stools Loratadine (Claritin) 10 mg PER TUBE DAILYPRN PRN PRN Reason: Sinus Symptoms Lorazepam (Ativan) 1 mg PER TUBE Q4H PRN PRN Reason: Anxiety/Agitation Magnesium Hydroxide (Milk Of Magnesium) 30 ml PER TUBE DAILYPRN PRN PRN Reason: Constipation Mineral Oil/White Petrolatum (Eucerin Cream) 0 gm TOP BIDPRN PRN PRN Reason: Dry Skin Miscellaneous Medication (Pharmacy To Dose) 1 each IVPB DAILYPRN PRN PRN Reason: LABS Nitroglycerin (Nitrostat) 0.4 mg SL Q5MIN PRN PRN Reason: Chest Pain Oseltamivir Phosphate (Tamiflu) 75 mg PO BID [facility] Stop: 09/17/17 21:01 Phenol (Chloraseptic [place] 180 Ml Bot) 0 ml PO PRN PRN PRN Reason: Sore Throat Senna (Senokot) 2 tab PER TUBE HSPRN PRN PRN Reason: Constipation Sodium Chloride ([place] Nasal [place] 0.65%) 0 ml EA NARE QIDPRN PRN PRN Reason: Nasal Congestion Zolpidem Tartrate (Ambien) 5 mg PER TUBE HSPRN PRN PRN Reason: Insomnia
[2017-09-13] MEDS: Carvedilol 3.125 MG TAB PER TUBE SCH ×2 (12:18→17:00)
[2017-09-13] MEDS: Lisinopril 2.5 MG TAB PER TUBE SCH (12:19)
[2017-09-13] MEDS: Atorvastatin Calcium 10 MG TAB PER TUBE SCH (12:19)
[2017-09-13] MEDS: Oseltamivir 75 MG CAP PO SCH ×2 (12:20→21:09)
[2017-09-13] MEDS: Famotidine 20 MG TAB PER TUBE SCH ×2 (12:30→21:09)
[2017-09-13] MEDS: Furosemide 20 MG TAB PER TUBE SCH ×2 (12:30→21:09)
--- NOTE | 2017-09-13 14:27 | CON ---
DATE OF CONSULTATION: 09/13/2017 INDICATION FOR CONSULTATION: An 86-year-old female with elevated cardiac enzymes. She has a history of a recent influenza A. She has also had fever at home. She has had some tachycardia. EKG in the emergency room indicated possible atrial fibrillation. All of these would elevate her cardiac enzyme s, which are actually unchanged from a recent admission approximately 1-2 months ago when she was adm itted with a CVA. Since her last CVA, she has actually pretty much been bedbound at home. She has r ight hemiparesis. She has had a history in the past also some hypertension and hypercholesterolemia. She has a history of diabetes. She has mild dementia. Also has a history hypothyroidism. Her fam kevon says that she had been doing relatively well, but when the family members had a recent influenza, then the patient started complaining of not been feeling very well. She became more unresponsive an d had a fever and was brought to the emergency room, at which time she was admitted with a diagnosis of pneumonia. At this time, the patient is still somewhat unresponsive. The family is able to arouse her. She does know her name, her date of , but other than that I get very little information f rom the patient. She is moaning throughout the entire history and physical, making somewhat difficul t also to obtain a clear physical examination. PAST MEDICAL HISTORY: Significant for the CVA in 05/2017, hypertension, diabetes type 2, dyslipidemi a, chronic back pain, hypothyroidism. She had nonhealing buttock pressure ulceration in the past. T his appears to be healing according to the family, this was not evaluated. She has bilateral catarac ts for which she has not had any particular surgery yet. She has dementia and hypothyroidism. PAST SURGICAL HISTORY: None. PSYCHIATRIC HISTORY: History of anxiety and dementia. FAMILY HISTORY: Has a history of diabetes and hypertension. SOCIAL HISTORY: She still stays at home with family members to take care of her. There is no histor y of alcohol or tobacco abuse in the past. ALLERGIES: She has no known drug allergies. MEDICATIONS: Included aspirin, amlodipine, glimepiride, atorvastatin, furosemide, levothyroxine, hyd rochlorothiazide, Januvia, metformin, and potassium. REVIEW OF SYSTEMS: Clear review of systems is unobtainable, but according to the family, she had bee n doing relatively well except what was noted in the history of the present illness. PHYSICAL EXAMINATION: GENERAL: Reveals an elderly female who appears to be in some mild uncomfortable state. She is moani ng during the procedure and to my physical examination, but otherwise does not appear to be any acute distress at this time. VITAL SIGNS: Her blood pressure is 139/80, heart rate is 94 and regular, respiratory rate 20, O2 sat urations 100%, temperature is 99.6. HEENT: Reveals the head to be normocephalic, atraumatic. I did not hear any significant bruits. CHEST: Has decreased breath sounds, but difficult to auscultate due to the noise that the patient he rself was making with her moaning, but I do not hear any significant rales or rhonchi. No wheezing w as noted. CARDIOVASCULAR: Exam reveals a regular rate and rhythm. She had a very soft systolic murmur at the lower sternal border. There were no heaves or thrills noted. ABDOMEN: Shows obesity, positive bowel sounds. EXTREMITIES: Show no clubbing or cyanosis. I could not palpate pedal pulses. SKIN: Warm and dry. NEUROLOGIC: Again, the patient appears to be somewhat lethargic and this may be due to previous the CVA and due to recent ongoing influenza, but is arousable by the family but she did not awaken for me other than just to open her eyes and continue to moan. LABORATORY DATA: Her laboratory data shows hemoglobin of 9.8, hematocrit 31.5, WBC is 5.0, platelet count was 239. She has 6 bands. Her chemistry shows a creatinine of 0.7, BUN 16, potassium is 4.0. Her troponin I was 0.50 and remains essentially at the same at 0.536. There is no indication that t ronit patient suffered a myocardial infarction. Her EKG shows some nonspecific changes. Since being in the cardiac monitor technician, she has had a normal sinus rhythm with PACs, occasional rare PVCs. She denie d any other significant symptoms that would indicate any myocardial problems at this time. She has a slight elevation of the cardiac enzymes in the past and this was again is not unusual in someone who has had tachycardia with fevers and also a recent CVA in the past. Her urinalysis, I believe that t he family says she had some foul smelling urine. She has a large amount of blood in the urine, but t here were no significant WBCs seen, it still normal. She did have an echocardiogram in the past whic h showed an ejection fraction of 50% to 55% with diastolic dysfunction and no significant valvular di sease. IMPRESSION: 1. An 86-year-old female with slight elevation of cardiac enzymes due to elevated heart rate, possib le atrial fibrillation in the emergency room, also due to temperature increase, but no significant in crease from previous admission, no indication that this is a true myocardial infarction. EKG did not show any acute ST segment changes. We will continue just to monitor her. 2. Influenza A with fevers and worsening of her mental status due to underlying dementia and patient with illness. 3. History of hypertension, this is stable at this time. 4. Hyperlipidemia. She can continue her medications at home. 5. History of diabetes. This will be dealt with by the primary service appears to be under relative ly good control at this time with the blood sugar 135. 6. Mild anemia, hemoglobin 9.8. This patient overall has multiple medical problems and I believe th e patient's situation has been discussed with hospice and she will become a hospice candidate after s he has had no fever over the 24-48 hours. According to the family, they have already discussed these issues with hospice and when she is afebrile and they will be able to place her into hospice. From a cardiac standpoint, there is nothing that we would do eventually at this time. As far as medical m anagement is concerned, the only other option since the patient is bedridden, will be to try low dose anticoagulation or deep venous thrombosis prophylaxis with some subcu Lovenox. She also has a feedi ng tube in place due to problems in the past with aspiration while she was trying to eat after her ce rebrovascular accident.
[2017-09-13] MEDS: Vancomycin HCl 1 GM in Premix Bag 1 BAG IVPB SCH (17:07)
[2017-09-14 05:39] LABS: ALT (SGPT) 58 U/L (8-55); AST (SGOT) 57 U/L (5-34); Albumin 2.8 g/dL (3.4-4.8); Alkaline Phosphatase 136 U/L (40-150); Anion Gap 11 mmol/L (10-20); BUN (Urea Nitrogen) 18 mg/dL (9.8-20.1); Bilirubin, Total 0.6 mg/dL (0.2-1.2); Calc. Creatinine Clearance 67 mL/min (70-130); Calcium 8.8 mg/dL (7.8-10.44); Carbon Dioxide 25 mmol/L (23-31); Chloride 103 mmol/L (98-107); Estimated GFR-MDRD Greater than 90; Globulin 3.6 g/dL (2.4-3.5); Glucose 99 mg/dL (83-110); Potassium 4.1 mmol/L (3.5-5.1); Protein, Total 6.4 g/dL (6.0-8.3); Sodium 135 mmol/L (136-145)
[2017-09-14 05:42] LABS: CKMB 1.2 ng/mL (0-6.6)
[2017-09-14 05:44] LABS: Critical Call Chem Troponin I RESULT DECREASING; Troponin I 0.511 ng/mL (< 0.028)
[2017-09-14] MEDS: Levothyroxine Sodium 125 MCG TAB PER TUBE SCH (05:46)
[2017-09-14] MEDS: Vancomycin HCl 1 GM in Premix Bag 1 BAG IVPB SCH (05:46)
[2017-09-14 06:21] LABS: Band 7 % (5-11); Hemoglobin 9.6 g/dL (12.0-16.0); Lymphocytes 26 % (21-51); MDiff Complete? YES; Mean Corpuscular HGB CONC 30.9 g/dL (32.0-36.0); Mean Corpuscular Hemoglobin 29.6 pg (27.0-31.0); Mean Corpuscular Volume 95.9 fl (81.0-99.0); Mean Platelet Volume 7.2 fL (7.4-10.4); Monocytes 19 % (0-10); Neutrophil 48 % (42-75); Platelet Count 222 thou/uL (130-400); RBC Distribution Width 13.3 % (11.5-14.5); Red Blood Cell (RBC) Count 3.24 mill/uL (4.20-5.40); White Blood Cell (WBC) Count 4.3 thou/uL (4.8-10.8)
[2017-09-14 09:06] VITALS: BP 136/71; TEMP 98.6
[2017-09-14] MEDS: Lisinopril 2.5 MG TAB PER TUBE SCH (09:07)
[2017-09-14] MEDS: Furosemide 20 MG TAB PER TUBE SCH (09:07)
[2017-09-14] MEDS: Carvedilol 3.125 MG TAB PER TUBE SCH (09:07)
[2017-09-14] MEDS: Oseltamivir 75 MG CAP PO SCH (09:08)
[2017-09-14] MEDS: Atorvastatin Calcium 10 MG TAB PER TUBE SCH (09:08)
[2017-09-14] MEDS: Famotidine 20 MG TAB PER TUBE SCH (09:08)
--- NOTE | 2017-09-14 09:55 | PDOC.PN ---
- Subjective Encounter Start Date: 09/14/17 Encounter Start Time: 08:00 -: non-verbal Patient seen and examined. No overnight events - Objective Resuscitation Status: Resuscitation Status DNR:Do Not Resuscitate MAR Reviewed: Yes Vital Signs & Weight: Vital Signs (12 hours) Temp Pulse Resp BP BP Pulse Ox 09/14/17 09:07 80 136/71 09/14/17 09:04 98.6 F 80 18 136/71 99 09/14/17 04:00 98.9 F 82 20 154/71 H 99 09/13/17 23:32 98 Weight Admit Weight 169 lb 6.4 oz Weight 169 lb 4 oz I&O: 09/13/17 09/14/17 09/15/17 06:59 06:59 06:59 Intake Total 406 2824 Output Total 250 600 Balance 156 2224 Result Diagrams: 09/14/17 04:26 09/14/17 04:26 Additional Labs: Accuchecks 09/14/17 09/13/17 09/13/17 05:48 19:56 16:03 POC Glucose 114 H 264 H 121 H 09/13/17 10:58 POC Glucose 120 H EKG Reviewed by me: Yes Phys Exam - Physical Examination Constitutional: NAD HEENT: PERRLA, sclera anicteric Neck: no JVD, supple Respiratory: no wheezing, no rales, no rhonchi Cardiovascular: RRR, no significant murmur, no rub Gastrointestinal: soft, no distention, positive bowel sounds PEG+ Musculoskeletal: no edema, pulses present residual weakness, contracture, dysphagia Lymphatic: no nodes Psychiatric: normal affect Skin: no rash, normal turgor Dx/Plan (1) Acute respiratory failure with hypoxia Code(s): J96.01 - ACUTE RESPIRATORY FAILURE WITH HYPOXIA Status: Resolved (2) Atrial fibrillation with RVR Code(s): I48.91 - UNSPECIFIED ATRIAL FIBRILLATION Status: Resolved Comment: now rate controlled (3) Influenza A Code(s): J10.1 - FLU DUE TO OTH IDENT INFLUENZA VIRUS W OTH RESP MANIFEST Status: Acute (4) Lactic acidosis Code(s): E87.2 - ACIDOSIS Status: Resolved (5) Non-ST elevation myocardial infarction (NSTEMI), type 2 Code(s): I21.A1 - MYOCARDIAL INFARCTION TYPE 2 Status: Acute (6) Sepsis with acute organ dysfunction Code(s): A41.9 - SEPSIS, UNSPECIFIED ORGANISM; R65.20 - SEVERE SEPSIS WITHOUT SEPTIC SHOCK Status: Acute (7) Transaminitis Code(s): R74.0 - NONSPEC ELEV OF LEVELS OF TRANSAMNS & LACTIC ACID DEHYDRGNSE Status: Acute (8) DM2 (diabetes mellitus, type 2) Status: Chronic Comment: (9) H/O: CVA (cerebrovascular accident) Code(s): Z86.73 - PRSNL HX OF TIA (TIA), AND CEREB INFRC W/O RESID DEFICITS Status: Chronic Comment: (10) HLD (hyperlipidemia) Code(s): E78.5 - HYPERLIPIDEMIA, UNSPECIFIED Status: Chronic (11) HTN (hypertension) Code(s): I10 - ESSENTIAL (PRIMARY) HYPERTENSION Status: Chronic (12) Hypothyroidism Code(s): E03.9 - HYPOTHYROIDISM, UNSPECIFIED Status: Chronic (13) Oropharyngeal dysphagia Code(s): R13.12 - DYSPHAGIA, OROPHARYNGEAL PHASE Status: Chronic Comment: with PEG - Plan cont current plan of care, continue antibiotics, social worker assistant, respiratory therapy * continue levaquin and vancomycin * on discharge only levaquin * continue tamiflu * continue tube feeding * will arrange home hospice today and if arranged, will DC to home * see discharge summery * medication reviewed as below * symptomatic treatment. Review of Systems - Review of Systems Other: unable to review due to nonverbal status - Medications/Allergies Allergies/Adverse Reactions: Allergies Allergy/AdvReac Type Severity Reaction Status Date / Time No Known Allergies Allergy Verified 09/12/17 23:09 Medications: Current Medications Acetaminophen (Tylenol) 650 mg PER TUBE Q4H PRN PRN Reason: Headache/Fever or Pain Hydrocodone Bitart/Acetaminophen ([place] 5/325) 1 tab PER TUBE Q4H PRN PRN Reason: Moderate Pain (4-6) Al Hydroxide/Mg Hydroxide (Maalox) 15 ml PER TUBE Q4H PRN PRN Reason: Heartburn or Indigestion Albuterol/Ipratropium (Duoneb) 3 ml NEB Q6H PRN PRN Reason: SOB &/or Wheezing Artificial Tears (Tears Naturale) 0 drop EA EYE PRN PRN PRN Reason: Dry Eyes Atorvastatin Calcium (Lipitor) 10 mg PER TUBE DAILY MASHA Last Admin: 09/14/17 09:08 Dose: 10 mg Carvedilol (Coreg) 3.125 mg PER TUBE BID-[facility] Last Admin: 09/14/17 09:07 Dose: 3.125 mg Dextrose/Water (Dextrose 50%) 25 gm SLOW IVP PRN PRN PRN Reason: Hypoglycemia Famotidine (Pepcid) 20 mg PER TUBE BID [facility] Last Admin: 09/14/17 09:08 Dose: 20 mg Furosemide (Lasix) 20 mg PER TUBE BID [facility] Last Admin: 09/14/17 09:07 Dose: 20 mg Glucagon (Glucagon) 1 mg IM PRN PRN PRN Reason: Hypoglycemia Guaifenesin (Robitussin Sf) 200 mg PER TUBE Q4H PRN PRN Reason: Cough Hydralazine HCl (Apresoline) 10 mg SLOW IVP Q4H PRN PRN Reason: Systolic BP > 180 Dextrose/Water (D5w) 1,000 mls @ 0 mls/hr IV .Q0M PRN; As Directed PRN Reason: Hypoglycemia Levofloxacin 750 mg/ Device 150 mls @ 100 mls/hr IVPB 1800 [facility] Last Admin: 09/13/17 18:08 Dose: 150 mls Vancomycin HCl 1 gm/ Device 200 mls @ 200 mls/hr IVPB 0600,1800 [facility] Last Admin: 09/14/17 05:46 Dose: 200 mls Insulin Human Regular (Humulin R) 0 units SC .MODERATE SLIDING SC PRN PRN Reason: Moderate Correctional Scale Levothyroxine Sodium (Synthroid) 125 mcg PER TUBE 0600 [facility] Last Admin: 09/14/17 05:46 Dose: 125 mcg Lisinopril (Zestril) 2.5 mg PER TUBE DAILY [facility] Last Admin: 09/14/17 09:07 Dose: 2.5 mg Loperamide HCl (Imodium) 2 mg PER TUBE PRN PRN PRN Reason: Diarrhea/Loose Stools Loratadine (Claritin) 10 mg PER TUBE DAILYPRN PRN PRN Reason: Sinus Symptoms Lorazepam (Ativan) 1 mg PER TUBE Q4H PRN PRN Reason: Anxiety/Agitation Magnesium Hydroxide (Milk Of Magnesium) 30 ml PER TUBE DAILYPRN PRN PRN Reason: Constipation Mineral Oil/White Petrolatum (Eucerin Cream) 0 gm TOP BIDPRN PRN PRN Reason: Dry Skin Miscellaneous Medication (Pharmacy To Dose) 1 each IVPB DAILYPRN PRN PRN Reason: LABS Nitroglycerin (Nitrostat) 0.4 mg SL Q5MIN PRN PRN Reason: Chest Pain Oseltamivir Phosphate (Tamiflu) 75 mg PO BID MASHA Stop: 09/17/17 21:01 Last Admin: 09/14/17 09:08 Dose: 75 mg Phenol (Chloraseptic [place] 180 Ml Bot) 0 ml PO PRN PRN PRN Reason: Sore Throat Senna (Senokot) 2 tab PER TUBE HSPRN PRN PRN Reason: Constipation Sodium Chloride ([place] Nasal [place] 0.65%) 0 ml EA NARE QIDPRN PRN PRN Reason: Nasal Congestion Zolpidem Tartrate (Ambien) 5 mg PER TUBE HSPRN PRN PRN Reason: Insomnia
--- NOTE | 2017-09-14 10:40 | DIS ---
DATE OF ADMISSION: 09/12/2017 DATE OF DISCHARGE: 09/14/2017 PRIMARY CARE PHYSICIAN: Dr. James Azevedo. DISCHARGE DISPOSITION: Home with home hospice for comfort care. PRIMARY DISCHARGE DIAGNOSES: 1. Acute respiratory failure with hypoxia on admission, resolved. 2. Atrial fibrillation with rapid ventricular response on admission, resolved. 3. Influenza A. 4. Lactic acidosis. 5. Non-ST elevation myocardial infarction, type 2 due to demand ischemia. 6. Sepsis with acute organ dysfunction. 7. Abnormal liver function tests (transaminitis due to sepsis). SECONDARY DISCHARGE DIAGNOSES: Oropharyngeal dysphagia with percutaneous endoscopic gastrostomy tube , hypothyroidism, hypertension, dyslipidemia, history of cerebrovascular accident with residual weakn ess and dysphagia, diabetes type 2, physical deconditioning, and paroxysmal atrial fibrillation. PRIMARY PROCEDURE/OPERATION: None. RADIOLOGICAL INVESTIGATION: Chest x-ray showed bibasilar pleural effusion and atelectasis. SIGNIFICANT LABORATORY DATA: WBC 4.3, hemoglobin 9.6, platelets 222. INR 1.3. Sodium 135, potassiu m 4.1, chloride 103, carbon dioxide 25, BUN 18, creatinine 0.72, calcium 8.8, AST 57, ALT 58, alkalin e phosphatase 136, albumin 2.8, CK-MB 1.2, troponin 0.511, lipase 67. Urinalysis: Proteinuria, gluc osuria, influenza A positive, blood culture was positive for gram positive cocci 1/2, likely contamin ant. DISCHARGE MEDICATIONS: Lipitor 10 mg per tube daily, Coreg 3.125 mg per tube b.i.d., Pepcid 20 mg pe r tube b.i.d., Lasix 20 mg per tube b.i.d., Levaquin 500 mg per tube daily for 7 days, Synthroid 125 mcg per tube daily, lisinopril 2.5 mg per tube daily, and Tamiflu 75 mg per tube twice daily for 3 mo re days. CONTRAINDICATIONS: None. CODE STATUS: DNR. INPATIENT CONSULTANTS: Dr. Brewer was consulted for elevated troponin. TEST RESULTS PENDING ON DISCHARGE: None. ALLERGIES: No known drug allergies. DISCHARGE PLAN: Post hospital, the patient is discharged home with home hospice for comfort care. HOSPITAL COURSE: An 86-year-old female who has above-mentioned medical problems. She is nonverbal a nd she is on tube feeding for her oropharyngeal dysphagia from previous stroke. This patient was bro ught to hospital and she was admitted by Dr. Gar. Please see his H and P for further detail s. This patient was hypoxic at 88% on room air. She was febrile with temperature of 102 and she was tachycardic. She had influenza A positive. She was meeting sepsis criteria. She had elevated trop onins, which was attributed to demand ischemia. She had lactic acidosis. She was admitted to teleme try floor. She was treated with broad spectrum antibiotic therapy with vancomycin and Levaquin. We resumed her home medication. We resumed tube feeding while in hospital. This patient's medical power of assistant city attorney, her niece Jackie. She is working on arranging outpatient h ospice with [facility]. Today, we are going taking help from our transplant case manager to arrange critical access hospital hospice. This patient otherwise medically stable. Her long-term prognosis is very poor. We are c hanging to p.o. Levaquin for another 7 days empirically. Her culture 1 out of 2 was positive which i s likely contaminant. While in hospital, she remained hemodynamically stable, tolerating tube feedin g well. The patient is seen and examined. The patient is nonverbal and she is not able to provide any review of systems. Caregiver was present at bedside and plan of care discussed with them as well. VITAL SIGNS: Currently, temperature 98.9, pulse 82, respiratory rate 20, saturation 99% on 2 liters, blood pressure 154/71, weight 169 pounds. GENERAL: The patient is currently up to her baseline, awake, arousable. NECK: Supple. No JVD, no thyromegaly. LUNGS: Clear without any rhonchi or rales though air entry reduced at base. CARDIAC: S1, S2, appears regular without any significant murmur. ABDOMEN: Soft. PEG tube in place. No peritoneal sign. EXTREMITIES: No edema. NEUROLOGIC: The patient does have residual weakness and contracture. Once we have outpatient home hospice arranged and necessary equipment arranged, then we will consider discharging this patient later on home.
--- NOTE | 2017-09-14 13:59 | PDOC.CTH ---
Cardiology Progress Note - Subjective The pt seen and examined. No overnight events. No cardiac complaints. She can answer questions with nodding or shaking head. Her caregiver are at bedside. - Objective Vital Signs Temp Pulse Resp BP BP Pulse Ox 09/14/17 09:07 80 136/71 09/14/17 09:04 98.6 F 80 18 136/71 99 09/14/17 04:00 98.9 F 82 20 154/71 H 99 Admit Weight 169 lb 6.4 oz Weight 169 lb 4 oz 09/13/17 09/14/17 09/15/17 06:59 06:59 06:59 Intake Total 406 2824 Output Total 250 600 Balance 156 2224 - Physical Examination General/Neuro: alert & oriented x3 Neck: no JVD present Lungs: other: (diminished at bases) Heart: other: (irregular) Abdomen: soft Extremities: other: (No edema) - Telemetry Telemetry Rhythm: Afib with HR 70 - Labs Result Diagrams: 09/14/17 04:26 09/14/17 04:26 Troponin/CKMB CK-MB (CK-2) 1.2 ng/mL (0-6.6) 09/14/17 04:26 Troponin I 0.511 ng/mL (< 0.028) H* 09/14/17 04:26 - Assessment/Plan 1. Abnormal Trop level - possible due to high temp from Influenza A; The pt' s condition is stable; cont. monitor on tele; Cont. medial treatment at this time , no plan for further cardiac workup or interventions; on Statin, BBlocker and KAYLA 2. Proximal Afib - Afib with well controlled HR; cont. monitor on tele 3. Influenza A- on Tamiflu; managed by PCP 4. Hypertension - stable with current medication 5. Hyperlipidemia - on statin 6. DM type 2 - stable; managed by PCP 7. Hx of CVA - stable 8.Anemia - stable; cont. monitor 9. Hypothyroidism - on Thyroid med MAR Reviewed * The pt was discharged with Home Hospice. Review of Systems - Review of Systems Constitutional: reports: no symptoms reported EENTM: reports: no symptoms reported Respiratory: reports: no symptoms reported Cardiac (ROS): reports: no symptoms reported ABD/GI: reports: no symptoms reported : reports: no symptoms reported Musculoskeletal: reports: no symptoms reported
--- NOTE | 2017-09-22 15:15 | EKG ---
Test Reason : SOB Blood Pressure : / mmHG Vent. Rate : 101 BPM Atrial Rate : 061 BPM P-R Int : 000 ms QRS Dur : 084 ms QT Int : 348 ms P-R-T Axes : 000 004 172 degrees QTc Int : 451 ms Atrial fibrillation with rapid ventricular response with premature ventricular or aberrantly conducte d complexes Abnormal ECG Confirmed by JANUARY YOST, KEELY ([id number]), offline editor JOSSELYN WILSON ([id number]) on 09/22/2017 3:14:25 PM Referred By: Confirmed By:KEELY SIN MD
== END 2017-09-14 13:23 | disposition hospice, home (50) | DRG 871 ==
LOC: ERS 17:52 → 2NO 20:54
PROVIDERS: ADMIT Internal Medicine; ATTEND Internal Medicine
DX: A41.89 Other specified sepsis (principal); J96.01 Acute respiratory failure with hypoxia; I21.A1 Myocardial infarction type 2; E87.2 Acidosis; I48.0 Paroxysmal atrial fibrillation; E11.22 Type 2 diabetes mellitus with diabetic chronic kidney disease; R13.12 Dysphagia, oropharyngeal phase; I69.351 Hemiplegia and hemiparesis following cerebral infarction affecting right dominant side; I69.320 Aphasia following cerebral infarction; Z93.1 Gastrostomy status; R65.20 Severe sepsis without septic shock; J10.1 Influenza due to other identified influenza virus with other respiratory manifestations; I69.391 Dysphagia following cerebral infarction; Z51.5 Encounter for palliative care; Z66 Do not resuscitate; E03.9 Hypothyroidism, unspecified; I10 Essential (primary) hypertension; E78.00 Pure hypercholesterolemia, unspecified; F03.90 Unspecified dementia, unspecified severity, without behavioral disturbance, psychotic disturbance, mood disturbance, and anxiety; D64.9 Anemia, unspecified; Z74.01 Bed confinement status
CPT/HCPCS: 36415; 36416; 51702; 71045; 80048; 80053; 81003; 81015; 82553; 83605; 83690; 83880; 84484; 85025; 85610; 85730; 87040; 87149; 87804; 93005; 94640; 96361; 96365; 96368; G8996-GN-CN; G8997-GN-CN; J1956; J3370; J7620